=== PATIENT | male | born 1960 | race Caucasian/White ===

== ENCOUNTER 2017-03-03 19:21 | Emergency (ER) | payer SELFPAY | END 2017-03-03 20:36 | disposition home or self-care (01) | LOC: D.ER 19:21 | DX: H60.02 Abscess of left external ear (principal); R51 Headache ==

== ENCOUNTER 2017-03-05 10:59 | Emergency (ER) | payer SELFPAY | END 2017-03-05 11:43 | disposition home or self-care (01) | LOC: D.ER 10:59 | DX: L02.91 Cutaneous abscess, unspecified (principal) ==

== ENCOUNTER 2017-08-21 19:27 | Observation (INO) | payer SELFPAY ==
[~2017-08-21] VITALS: Ht 200.7 cm; Wt 141.4 kg
--- NOTE | ~2017-08-21 | EC ---
PATIENT:STERLING ORTIZ DATE OF SERVICE: 08/21/17 SEX: M MEDICAL RECORD: [id number] DATE OF : 62 LOCATION:D.M2 D.213 AGE OF PATIENT: 57 ADMISSION DATE: 08/21/17 REFERRING PHYSICIAN: INTERPRETING PHYSICIAN: CONCHA PALMER MD ECHOCARDIOGRAM REPORT ECHO CHARGES 4 ECHO COMPLETE Date: 08/22 CLINICAL DIAGNOSIS: HTN HX CAD/CABG ECHOCARDIOGRAPHIC MEASUREMENTS (adult normal given) AC root (d.<3.7cm) 3.6 cm LV Septum d (<1.2 cm> 1.4 cm Valve Excursion 1.7 cm LV Septum (systole) 1.8 cm Left Atria (s.<4.0cm> 3.5 cm LVPW d(<1.2cm) 1.7 cm RV (d.<2.3cm) 3.6 cm LVPW (sytole) 2.3 cm LV diastole(<5.6CM) 5.0 cm MV E-F(>70mm/sec) cm LV systole 3.5 cm LVOT Diameter 2.4 cm MV exc.(>10mm) 1.5 cm Est.ejection fraction (50-75%) % DOPPLER: LVIT cm/sec A 74.0 cm/sec E 57.0 cm/sec LA cm/sec RVSP 20 mmHg LVOT 123 cm/sec AOP1/2T m/s Asc. Ao 154 cm/sec RVOT cm/sec RA cm/sec PA cm/sec AV Gradient Peak 9.52 mmHg AV Mean 5.05 mmHg AV Area 4.5 cm MV Gradient Peak 3.88 mmHg MV Mean 2.17 mmHg MV Area cm COMMENTS: Drying Machine Back Tender: Kaitlynn ALFREDO Route Jumper: 1 Dr. Palmer TAPE# PACS Pericardial Effusion N DATE OF SERVICE: 08/22/2017 PROCEDURE: Echocardiogram. FINDINGS: 1. Left ventricle chamber size is within normal limits. Left ventricular systolic function is normal. Overall ejection fraction estimated at 55%. 2. Left atrium is within normal limits at 3.5 cm. Right atrium and right ventricle chamber sizes are mildly dilated. 3. Valvular structures have normal structure and motion. ECHOCARDIOGRAM REPORT [id number] STERLING ORTIZ 4. Doppler interrogation only reveals trace tricuspid regurgitation, no other valvular insufficiency or stenosis and pulmonary systolic pressure is estimated at 20 mmHg. 5. No evidence of pericardial effusion or left ventricular thrombus. TRANSINT:[id number] Voice Confirmation ID: [id number] DOCUMENT ID: [id number] CONCHA PALMER MD at 1056 CC: [id number] DICTATION DATE: 08/23/17 0939 DIRECTOR OF CONTRACTS: 08/23/17 1106 DIS IN 08/23/17 [facility] [address] [id number]
[2017-08-21 20:17] LABS: BASOPHILS 0.4 % (0-2); EOSINOPHILS 1.2 % (0-7); HEMATOCRIT 41.4 % (42.0-54.0); HEMOGLOBIN 14.7 g/dL (13.5-17.5); IMMATURE GRANULOCYTES 1.3 % (0-5); LYMPHOCYTES 29.3 % (15-50); MCHC 35.5 g/dL (31.0-37.0); MCV 87.3 fL (80.0-100.0); MEAN PLATELET VOLUME 10.4 fL (7.4-10.4); MONOCYTES 6.2 % (2-11); NEUTROPHILS 61.6 % (40-80); RBC 4.74 10x6/uL (4.20-6.10); RDW 13.2 % (11.5-14.5); WBC 9.5 10x3/uL (4.8-10.8)
[2017-08-21 20:28] LABS: PLATELET COUNT 261 10x3/uL (130-400)
[2017-08-21 20:51] LABS: ALBUMIN 3.6 g/dL (3.4-5.0); ALKALINE PHOSPHATASE 110 U/L (46-116); AMYLASE - SERUM 26 U/L (25-115); BILIRUBIN - TOTAL 0.43 mg/dL (0.2-1.3); CALCIUM 8.5 mg/dL (8.5-10.1); CARBON DIOXIDE 21.5 mmol/L (21.0-32.0); CHLORIDE - SERUM 99 mmol/L (98-107); CHOL - HDL RATIO 9.8 ratio (2.3-4.9); CHOLESTEROL, TOTAL 187 mg/dL (0-200); CKMB 1.4 U/L (0.0-3.6); CREATINE KINASE 145 UL (21-232); CREATININE - SERUM 1.1 mg/dL (0.6-1.3); HDL CHOLESTEROL 19 mg/dL (32-96); LIPASE 164 U/L (73-393); POTASSIUM - SERUM 4.1 mmol/L (3.5-5.1); PROTEIN - SERUM 7.9 g/dL (6.4-8.2); SODIUM 136 mmol/L (136-145); UREA NITROGEN 26 mg/dL (7-18); eGFR NON AFRICAN AMERICAN 73 mL/min (90-120)
[2017-08-21 20:55] LABS: ALT (SGPT) 46 U/L (10-68); CALC OSMOLALITY 292 mosm/kg (275-300); GLUCOSE 384 mg/dL (74-106); TRIGLYCERIDE 1343 mg/dL (30-200); TROPONIN-I < 0.017 ng/mL (0.000-0.060)
[2017-08-22] VITALS: BP 156/84
[2017-08-22 00:39] VITALS: BMI 36.1
[2017-08-22 00:45] LABS: CKMB 1.4 U/L (0.0-3.6); CREATINE KINASE 124 UL (21-232)
[2017-08-22 00:47] LABS: TROPONIN-I < 0.017 ng/mL (0.000-0.060)
[2017-08-22 04:00] VITALS: BP 187/104
[2017-08-22 05:51] LABS: BASOPHILS 0.6 % (0-2); EOSINOPHILS 3.1 % (0-7); HEMATOCRIT 39.1 % (42.0-54.0); HEMOGLOBIN 13.4 g/dL (13.5-17.5); IMMATURE GRANULOCYTES 1.5 % (0-5); LYMPHOCYTES 34.4 % (15-50); MCHC 34.3 g/dL (31.0-37.0); MCV 87.5 fL (80.0-100.0); MEAN PLATELET VOLUME 9.7 fL (7.4-10.4); MONOCYTES 7.8 % (2-11); NEUTROPHILS 52.6 % (40-80); RBC 4.47 10x6/uL (4.20-6.10); RDW 13.2 % (11.5-14.5)
[2017-08-22 05:52] LABS: PLATELET COUNT 199 10x3/uL (130-400); WBC 6.6 10x3/uL (4.8-10.8)
[2017-08-22 06:30] LABS: CALC OSMOLALITY 287 mosm/kg (275-300); CALCIUM 8.3 mg/dL (8.5-10.1); CARBON DIOXIDE 22.2 mmol/L (21.0-32.0); CHLORIDE - SERUM 103 mmol/L (98-107); CKMB 1.4 U/L (0.0-3.6); CREATINE KINASE 126 UL (21-232); CREATININE - SERUM 0.9 mg/dL (0.6-1.3); GLUCOSE 271 mg/dL (74-106); POTASSIUM - SERUM 4.1 mmol/L (3.5-5.1); SODIUM 137 mmol/L (136-145); TROPONIN-I < 0.017 ng/mL (0.000-0.060); UREA NITROGEN 23 mg/dL (7-18); eGFR NON AFRICAN AMERICAN > 90 mL/min (90-120)
[2017-08-22 08:04] VITALS: BP 108/71
[2017-08-22 11:54] LABS: CKMB 1.6 U/L (0.0-3.6); CREATINE KINASE 112 UL (21-232); TROPONIN-I < 0.017 ng/mL (0.000-0.060)
[2017-08-22 12:09] VITALS: Ht 200.7 cm; Wt 141.4 kg
[2017-08-22 15:06] VITALS: BP 132/68
[2017-08-22 20:00] VITALS: BP 134/81
[2017-08-23 04:00] VITALS: BP 119/57
[2017-08-23 06:13] LABS: BASOPHILS 0.4 % (0-2); EOSINOPHILS 2.9 % (0-7); HEMATOCRIT 36.3 % (42.0-54.0); HEMOGLOBIN 12.1 g/dL (13.5-17.5); IMMATURE GRANULOCYTES 1.3 % (0-5); LYMPHOCYTES 23.6 % (15-50); MCH 29.9 pg (26.0-34.0); MCHC 33.3 g/dL (31.0-37.0); MONOCYTES 7.4 % (2-11); NEUTROPHILS 64.4 % (40-80); PLATELET COUNT 188 10x3/uL (130-400); RBC 4.05 10x6/uL (4.20-6.10); RDW 13.5 % (11.5-14.5); WBC 6.9 10x3/uL (4.8-10.8)
[2017-08-23 06:15] LABS: MCV 89.6 fL (80.0-100.0)
[2017-08-23 06:30] LABS: ALBUMIN 3.2 g/dL (3.4-5.0); ALKALINE PHOSPHATASE 100 U/L (46-116); CALCIUM 8.4 mg/dL (8.5-10.1); CARBON DIOXIDE 21.9 mmol/L (21.0-32.0); CHLORIDE - SERUM 102 mmol/L (98-107); CREATININE - SERUM 0.9 mg/dL (0.6-1.3); POTASSIUM - SERUM 4.1 mmol/L (3.5-5.1); SODIUM 135 mmol/L (136-145); UREA NITROGEN 20 mg/dL (7-18); eGFR NON AFRICAN AMERICAN > 90 mL/min (90-120)
[2017-08-23 06:31] LABS: ALT (SGPT) 44 U/L (10-68); CALC OSMOLALITY 284 mosm/kg (275-300); GLUCOSE 319 mg/dL (74-106)
[2017-08-23] MEDS ORDERED: CRESTOR10 MG PO (07:35)
[2017-08-23] MEDS ORDERED: LISINOPRIL10 MG PO (07:35)
[2017-08-23] MEDS ORDERED: NORVASC5 MG PO (07:35)
[2017-08-23] MEDS ORDERED: PROTONIX40 MG PO (07:36)
[2017-08-23] MEDS ORDERED: GLUCOPHAGE500 MG PO (07:36)
[2017-08-23] MEDS ORDERED: CARAFATE1 G PO (07:36)
[2017-08-23] MEDS ORDERED: GLIMEPIRIDE2 MG PO (07:36)
[2017-08-23 08:57] VITALS: BP 147/88
[2017-08-23 12:16] VITALS: BP 139/84
== END 2017-08-23 13:10 | disposition home or self-care (01) ==
LOC: D.ER 19:27 → D.M2 23:02 → OBSVTIME 23:02 → D.M2 08-23 13:10
PROVIDERS: Family Medicine
DX: R07.89 Other chest pain (principal); I25.10 Atherosclerotic heart disease of native coronary artery without angina pectoris; I10 Essential (primary) hypertension; E11.9 Type 2 diabetes mellitus without complications; Z79.84 Long term (current) use of oral hypoglycemic drugs; E78.5 Hyperlipidemia, unspecified; Z72.0 Tobacco use

== ENCOUNTER 2018-09-25 21:57 | Observation (INO) | payer BC ==
[~2018-09-25] VITALS: Ht 200.7 cm; Wt 136.8 kg
[~2018-09-25 21:57] MED LIST: CARAFATE1 G PO; CRESTOR10 MG PO; GLIMEPIRIDE2 MG PO; GLUCOPHAGE500 MG PO; LISINOPRIL10 MG PO; NORVASC5 MG PO; PROTONIX40 MG PO
[2018-09-25 22:32] VITALS: BP 183/106
[2018-09-25 23:08] LABS: BASOPHILS 0.4 % (0-2); EOSINOPHILS 2.2 % (0-7); HEMATOCRIT 38.9 % (42.0-54.0); IMMATURE GRANULOCYTES 1.4 % (0-5); LYMPHOCYTES 37.7 % (15-50); MCH 30.9 pg (26.0-34.0); MCV 85.9 fL (80.0-100.0); MEAN PLATELET VOLUME 10.2 fL (7.4-10.4); NEUTROPHILS 51.3 % (40-80); PLATELET COUNT 196 10x3/uL (130-400); RBC 4.53 10x6/uL (4.20-6.10); RDW 12.8 % (11.5-14.5); WBC 8.1 10x3/uL (4.8-10.8)
[2018-09-25 23:15] LABS: APTT 26.2 SECONDS (22.8-39.4); INR 1.01 (0.85-1.17); PROTIME 12.8 SECONDS (11.6-15.0)
--- NOTE | 2018-09-25 23:45 | NUR ---
PATIENT COMPLAINS OF BURNING EPIGASTRIC UP TO THROAT.
[2018-09-26] VITALS (7 sets, daily range): BP systolic 141–153; BP diastolic 76–100; Ht 200.7 cm; Wt 136.8 kg
[2018-09-26 00:10] LABS: AMYLASE - SERUM 23 U/L (25-115); LIPASE 118 U/L (73-393); MAGNESIUM - SERUM 1.7 mg/dL (1.8-2.4)
--- NOTE | 2018-09-26 00:10 | NUR ---
PATIENT PAIN LEVEL IS 1 AFTER TAKING GI COCKTAIL, NO COMPLAINTS VOICED.
[2018-09-26 00:11] LABS: CHLORIDE - SERUM 101 mmol/L (98-107); CREATININE - SERUM 1.2 mg/dL (0.6-1.3); GLUCOSE 330 mg/dL (74-106); SODIUM 138 mmol/L (136-145); UREA NITROGEN 18 mg/dL (7-18); eGFR NON AFRICAN AMERICAN 66 mL/min (90-120)
[2018-09-26 00:12] LABS: ALBUMIN 3.6 g/dL (3.4-5.0); ALKALINE PHOSPHATASE 110 U/L (46-116); ALT (SGPT) 36 U/L (10-68); BILIRUBIN - TOTAL 0.17 mg/dL (0.2-1.3); PROTEIN - SERUM 6.6 g/dL (6.4-8.2)
[2018-09-26 00:13] LABS: CKMB 3.6 U/L (0.0-3.6); CREATINE KINASE 124 UL (21-232); TROPONIN-I 0.035 ng/mL (0.000-0.060)
[2018-09-26 00:15] LABS: CALCIUM 9.2 mg/dL (8.5-10.1)
[2018-09-26 06:22] LABS: BASOPHILS 0.4 % (0-2); EOSINOPHILS 2.9 % (0-7); HEMATOCRIT 38.9 % (42.0-54.0); HEMOGLOBIN 13.6 g/dL (13.5-17.5); IMMATURE GRANULOCYTES 1.2 % (0-5); LYMPHOCYTES 32.9 % (15-50); MCH 30.1 pg (26.0-34.0); MCV 86.1 fL (80.0-100.0); MEAN PLATELET VOLUME 10.5 fL (7.4-10.4); MONOCYTES 7.6 % (2-11); PLATELET COUNT 178 10x3/uL (130-400); RBC 4.52 10x6/uL (4.20-6.10); RDW 12.8 % (11.5-14.5); WBC 6.9 10x3/uL (4.8-10.8)
[2018-09-26 06:48] LABS: CALC OSMOLALITY 286 mosm/kg (275-300); CALCIUM 8.9 mg/dL (8.5-10.1); CARBON DIOXIDE 25.3 mmol/L (21.0-32.0); CHLORIDE - SERUM 103 mmol/L (98-107); CHOL - HDL RATIO 6.6 ratio (2.3-4.9); CHOLESTEROL, TOTAL 139 mg/dL (0-200); CKMB 1.6 U/L (0.0-3.6); CREATINE KINASE 103 UL (21-232); GLUCOSE 303 mg/dL (74-106); HDL CHOLESTEROL 21 mg/dL (32-96); POTASSIUM - SERUM 3.8 mmol/L (3.5-5.1); SODIUM 137 mmol/L (136-145); TROPONIN-I < 0.017 ng/mL (0.000-0.060); UREA NITROGEN 18 mg/dL (7-18); eGFR NON AFRICAN AMERICAN 82 mL/min (90-120)
[2018-09-26 06:49] LABS: TRIGLYCERIDE 585 mg/dL (30-200)
--- NOTE | 2018-09-26 09:36 | NUR ---
PT SITTING IN CHAIR AT BEDSIDE. NEW ORDERS RECIEVED TO HAVE PT SIGN HOOK LOADER CONSENTS. HOOK LOADER CONSENTS SIGNED WITH WITNESS PRESENT. ALL QUESTIONS ANSWERED. AT BEDSIDE. SHIFT ASSESSMENT PERFORMED. DENIES NEEDS AT THIS TIME. WILL CONT TO FOLLOW POC
--- NOTE | 2018-09-26 09:38 | NUR ---
PT CALLED NURSE INTO ROOM AND ALERTED NURSE THAT HE DOES NOT WANT THE HEART CATH. PT STATES,"I KNOW IT IS NOT MY HEART." NOTIFIED RAIL CAR DRIVER.
--- NOTE | 2018-09-26 11:30 | NUR ---
REBECCA SAINI NOTIFIED NURSE THAT PT IS NOW AGREEABLE TO HEART CATH. CALLED . HAS ALREADY LEFT TO GO TO CLINIC FOR THE DAY BUT STATES HE WILL DISCUSS WITH AND SEE IF HE CAN BE ADDED ON AT THE END OF THE DAY.
--- NOTE | 2018-09-26 12:00 | NUR ---
OIL SPECULATOR CALLED NURSE AND STATES THAT PT WILL BE ADDED ON THE LAST CASE OF THE DAY. NURSE WENT TO PT ROOM TO LET THEM KNOW THAT THEY WILL BE HAVING A HEART CATH TODAY. UPON ENTERING PT ROOM, PT HAD HIS LUNCH TRAY AND WAS EATING IT. ADVISED PT THAT HE CANNOT HAVE A HEART CATH TODAY SINCE HE HAS EATEN HIS LUNCH. PT STATES HE DOES NOT WANT THE HEART CATH ANYWAY. NOTIFIED REBECCA SAINI AND THAT PT DOES NOT WANT THE HEART CATH NOW. CALLED OIL SPECULATOR AND DISCSUSSED WITH THEM WELL.
--- NOTE | 2018-09-26 19:43 | NUR ---
PT LAYING IN BED. DENIES ANY NEEDS. NO S/S OF DISTRESS. BEDLOW AND CALL LIGHT IN REACH. NAME AND DATE PLACED ON BOARD. BEDLOW AND CALL LIGHT IN REACH. WILL CPOC
--- NOTE | 2018-09-26 22:02 | NUR ---
414 FSBS 12 UNITS GIVEN ORDERED. EDUCATION GIVEN ON NIGHT MEDICATIONS. PT VERBALIZED UNDERSTANDING. PT STATES WILL DO HEART CATH IN THE MORNING, VERBALIZED UNDERSTANDING OF NPO AFTER MIDNIGHT. PT STATES BLOOD SUGAR HAS BEEN UNCONTROLLED FOR YEARS. PT SITTING ON SIDE OF BED NOW. NO S/S OF DISTRESS. DENIES ANY NEEDS. WILL CPOC
--- NOTE | 2018-09-27 00:02 | NUR ---
PT ASLEEP. RESP EVEN AND UNLABORED. PT SNORING LOUDLY. NO S/S OF DISTRESS. REMOVED DRINKS FROM BEDSIDE. PT HAS CALL LIGHT IN REACH. WILL CPOC
[2018-09-27 05:20] VITALS: BP 169/89
[2018-09-27 05:39] LABS: BASOPHILS 0.5 % (0-2); EOSINOPHILS 2.3 % (0-7); HEMOGLOBIN 14.3 g/dL (13.5-17.5); IMMATURE GRANULOCYTES 1.1 % (0-5); LYMPHOCYTES 27.5 % (15-50); MCH 30.6 pg (26.0-34.0); MCHC 35.8 g/dL (31.0-37.0); MCV 85.7 fL (80.0-100.0); MEAN PLATELET VOLUME 10.3 fL (7.4-10.4); MONOCYTES 7.8 % (2-11); NEUTROPHILS 60.8 % (40-80); PLATELET COUNT 191 10x3/uL (130-400); RBC 4.67 10x6/uL (4.20-6.10); RDW 12.7 % (11.5-14.5); WBC 7.3 10x3/uL (4.8-10.8)
[2018-09-27 06:12] LABS: ALBUMIN 3.3 g/dL (3.4-5.0); ALKALINE PHOSPHATASE 115 U/L (46-116); ALT (SGPT) 33 U/L (10-68); CALC OSMOLALITY 289 mosm/kg (275-300); CALCIUM 8.6 mg/dL (8.5-10.1); CARBON DIOXIDE 23.8 mmol/L (21.0-32.0); CHLORIDE - SERUM 101 mmol/L (98-107); CREATININE - SERUM 0.9 mg/dL (0.6-1.3); GLUCOSE 308 mg/dL (74-106); MAGNESIUM - SERUM 1.9 mg/dL (1.8-2.4); POTASSIUM - SERUM 3.9 mmol/L (3.5-5.1); PROTEIN - SERUM 7.1 g/dL (6.4-8.2); SODIUM 138 mmol/L (136-145); UREA NITROGEN 18 mg/dL (7-18); eGFR NON AFRICAN AMERICAN > 90 mL/min (90-120)
--- NOTE | 2018-09-27 07:29 | NUR ---
PT REFUSES ANY INSULIN THIS MORNING FOR FSBS OF 308 PT HAS NO S/S OF DISTRESS. WILL CPOC
[2018-09-27 08:00] VITALS: BP 133/81
--- NOTE | 2018-09-28 08:42 | MORECARE ---
CASE MANAGEMENT DISCHARGE SUMMARY PATIENT: STERLING ORTIZ UNIT: [id number] ADM DATE: 09/26/18 AGE: 58 : 62 SEX: M ROOM/BED: D.2128 AUTHOR: NEGRITO VERDIN PHYSICIAN: REFERRING PHYSICIAN: ROHAN FRANCISCO MD DATE OF SERVICE: 09/28/18 Discharge Plan Patient Name: STERLING ORTIZ [facility] 1960 Planned Disposition: Left Against Medical Advice Anticipated Discharge Date: 09/27/18 Discharge Date: 09/27/2018 Expected LOS: 1 Initial Reviewer: [email or web address] Initial Review Date: 09/28/2018 Generated: 09/28/18 9:42 am Patient Name: STERLING ORTIZ Page 37907 at 0842 All edits/amendments must be made on the electronic document DICTATION DATE: 09/28/18840 SENIOR MEDICAL TECHNOLOGIST: CHAR 09/28/18840 RPT#: [id number] DC DATE:09/27/18 STATUS: DIS IN [facility] [address] [place] [address] END OF REPORT
== END 2018-09-27 11:22 | disposition left against medical advice (07) ==
LOC: D.ER 21:57 → D.M2 09-26 01:14 → OBSVTIME 09-26 01:14 → D.M2 09-27 11:22
PROVIDERS: Family Medicine; ADMIT Emergency Medicine; ATTEND Emergency Medicine
DX: I25.110 Atherosclerotic heart disease of native coronary artery with unstable angina pectoris (principal); R61 Generalized hyperhidrosis; I10 Essential (primary) hypertension; E11.65 Type 2 diabetes mellitus with hyperglycemia; K21.9 Gastro-esophageal reflux disease without esophagitis; Z87.891 Personal history of nicotine dependence

== ENCOUNTER 2018-10-04 18:06 | Emergency (ER) | payer BC ==
[~2018-10-04] VITALS: Ht 200.7 cm; Wt 140.9 kg
[2018-10-04 18:20] VITALS: Ht 200.7 cm; Wt 140.9 kg
[2018-10-04] MEDS ORDERED: TORADOL10 MG PO (20:40)
[2018-10-04] MEDS ORDERED: CLEOCIN HCL300 MG PO (20:40)
[2018-10-04 21:19] VITALS: BP 181/89
== END 2018-10-04 21:20 | disposition home or self-care (01) ==
LOC: D.ER 18:06
DX: K61.0 Anal abscess (principal)

== ENCOUNTER 2019-09-08 10:44 | Inpatient (IN) | payer BC ==
[~2019-09-08] VITALS: Ht 200.7 cm; Wt 122.9 kg
--- NOTE | ~2019-09-08 | HEMODYNAMI ---
PATIENT:MARY ORTIZ MEDICAL RECORD: [id number] : 62 LOCATION:[facility].2234 ADMISSION DATE: 09/08/19 Generatedon:09/12/201914:29 Patient name: MARY ORTIZ Patient #: [id number] SSN: : 1960 Date of study: 09/12/2019 Page: Of Hemodynamic Procedure Report Patient Data Patient Demographics Procedure consent was obtained First Name: MARY Gender: Male Last Name: ANGEL : 1960 Patient #: [id number] Age: 59 year(s) Race: Unknown Additional ID: [id number] Contact details Address: [address] [place] [address] State: [place] City: [place] Zip code: [address] Past Medical History Allergies: No known allergies Admission Admission Data Admission Date: 09/08/2019 Admission Time: 13:57 Room #: [facility] Procedure Procedure Types Cath Procedure Peripheral Cath Diagnostic Procedure Miscellaneous Procedure Description Procedure Date Procedure Date: 09/12/2019 Procedure Start Time: 13:41 Procedure Staff Name Function Fei Jacobo MD Performing Physician Osiris Hernandez RT Monitor Danielito Black RT Scrub Ramila Deluca RN Nurse Procedure Data Cath Procedure Fluoroscopy Diagnostic fluoroscopy Total fluoroscopy Time: 7.3 time: 7.3 min min Diagnostic fluoroscopy Total fluoroscopy dose: 845 dose: 845 mGy mGy Contrast Material Contrast Material Type Amount (ml) Isovue 300 95 Entry Location Entry Primary Successful Side Size Upsize Upsize Entry Closure Succes sful Closure Location (Fr) 1 (Fr) 2 (Fr) Remarks Device Remarks Femoral Mynx artery Musical Instrument Maker Or Repairer 6Fr/7Fr Diagnostic catheters Device Type Used For End Catheter Placement Merit ULTRA BOLUS FLUSH 5Fr 90CM catheter ([id number]) Merit Impress Bean 5FR. 100CM catheter ([id number]) Procedure Medications Medication Administration Route Dosage Heparin Flush Bag added to field 3 bags (1000units/500ml NS) Lidocaine 1% added to field 20 Versed I.V. 1 mg Fentanyl I.V. 50 mcg Heparin Bolus I.V. 6000 units Hemodynamics Rest Heart Rate: 81 (bpm) Snapshots Pre Cath Intra NCS Post Cath Vital Signs Time Heart Resp SPO2 etCO2 NIBP (mmHg) Rhythm Pain Sedation Rate (ipm) (%) (mmHg) Status Level (bpm) 13:03:10 82 14 98 33.1 139/93(114) NSR 0 (11) 10(A) , No pain 13:07:22 80 13 98 33.8 151/89(114) NSR 0 (11) 10(A) , No pain 13:11:31 81 9 98 30.1 137/86(114) NSR 0 (11) 10(A) , No pain 13:15:43 82 13 98 33.8 140/85(108) NSR 0 (11) 10(A) , No pain 13:19:57 81 15 99 32.3 147/89(114) NSR 0 (11) 10(A) , No pain 13:24:11 84 20 97 31.6 149/92(120) NSR 0 (11) 10(A) , No pain 13:28:25 87 10 98 33.8 146/92(123) NSR 0 (11) 10(A) , No pain 13:32:37 90 16 99 19.5 150/90(127) NSR 0 (11) 10(A) , No pain 13:36:51 89 17 99 29.3 168/95(135) NSR 0 (11) 10(A) , No pain 13:41:07 87 6 97 38.3 152/85(122) NSR 0 (11) 10(A) , No pain 13:45:21 88 13 97 21 140/91(115) NSR 0 (11) 8(A) , No pain 13:49:37 87 10 95 35.3 126/75(99) NSR 0 (11) 8(A) , No pain 13:53:49 81 13 96 36.8 125/74(92) NSR 0 (11) 8(A) , No pain 13:58:01 80 15 96 35.3 127/76(102) NSR 0 (11) 8(A) , No pain 14:02:09 96 18 96 32.3 130/79(97) NSR 0 (11) 8(A) , No pain 14:06:19 85 16 96 33 127/74(98) NSR 0 (11) 8(A) , No pain 14:10:33 84 16 96 30 137/70(87) NSR 0 (11) 8(A) , No pain 14:14:47 81 15 97 33.8 129/75(100) NSR 0 (11) 8(A) , No pain 14:18:59 78 17 97 33 137/76(95) NSR 0 (11) 8(A) , No pain 14:23:11 82 22 97 28.5 139/87(113) NSR 0 (11) 8(A) , No pain 14:27:25 81 6 99 35.3 151/84(114) NSR 0 (11) 8(A) , No pain Medications Time Medication Route Dose Verified Delivered Reason Notes Effe ctiveness by by 13:29:54 Heparin Flush added 3 Fei Enamorado used for Bag to bags Donnell Jacobo procedure (1000units/500ml field MD ATNONIO NS) 13:30:10 Lidocaine 1% added 20ml Fei Enamorado for local to vial Donnell Jacobo anesthetic field MD ANTONIO 13:44:16 Versed I.V. 1 mg Fei Mcgrath for Donnell Deluca RN sedation 13:44:27 Fentanyl I.V. 50 Fei Ramila for mcg Donnell Deluca RN sedation 13:56:46 Heparin Bolus I.V. 6000 Fei Mcgrath Per units Donnell Deluca RN physician Procedure Log Time Note 13:00:42 Danielito Black RT (R) (CV) sent for patient. Start room use. 13:01:18 Time tracking: Regular hours (M-F 7:00 - 5:00) 13:01:40 Plan of Care:Hemodynamics will remain stable., Cardiac rhythm will remain stable., Comfort level will be maintained., Respiratory function will remain adequate., Patient/ family verbilizes understanding of procedure., Procedure tolerated without complication., Recovers from procedure without complications.. 13:01:47 Patient received from Med II to IR Alert and oriented. Tansferred to table in Supine position. 13:01:52 Signed procedure consent form obtained from patient. 13:01:58 H&P Date Dictated: 09/12/2019 Within 30 days and on chart.. 13:02:02 ECG and BP/O2 sat monitors applied to patient. 13:02:07 Vital chart was started 13:02:09 Baseline sample Acquired. 13:02:10 Full Disclosure recording started 13:02:12 - 13:02:16 Pre-procedure instructions explained to patient. 13:02:17 Pre-op teaching completed and patient verbalized understanding. 13:02:24 Family unavailable. 13:02:26 Patient NPO since Midnight. 13:02:36 Patient allergic to No known allergies 13:02:40 Is the patient allergic to Iodine/contrast media? No. 13:02:47 Is patient on blood thinner?No 13:02:50 Patient diabetic? Yes. 13:02:57 - 13:03:01 ----Pre-sedation anethsthesia assessment.---- 13:03:07 Previous problem with sedation/anesthesia? No ? 13:03:10 Snore? Yes 13:03:13 Sleep apnea? No 13:03:16 Deviated septum? No 13:03:21 Opens mouth fully? Yes 13:03:24 Sticks out tongue? Yes 13:03:26 Airway obstruction? No ? 13:03:32 Dentures? No ? 13:03:33 - 13:03:38 Pre procedure: right dorsailis pedis pulse Doppler 13:03:43 Pre procedure: left dorsailis pedis pulse Doppler 13:03:47 Pre procedure: right posterior tibial pulse Doppler 13:03:52 Pre procedure: left posterior tibial pulse Doppler 13:04:00 Right groin area was prepped with chlora-prep and draped in sterile fashion 13:04:02 - 13:04:14 Fire Safety Assessment: A--An alcohol-based skin anteseptic being used preoperatively., C--Open oxygen or nitrous oxide is being used. 13:04:25 1) 90+ Normal kidney functon but urine findings or structural abnormalities or genetic trait point to kidney disease. 13:04:52 Maximum allowable contrast dose (3.7 X eGFR X 0.75)250 ml. 13:04:55 - 13:08:22 Use device set IR Diagnostic 13:08:24 Tegaderm 4 x 4 (1626W) opened to sterile field. 13:08:25 Sterile Angiographic Pack opened to sterile field. 13:08:25 Bag Decanter () opened to sterile field. 13:08:26 ACIST Manifold (87934) opened to sterile field. 13:08:27 ACIST Hand Control (54129) opened to sterile field. 13:08:28 ACIST Syringe (57680) opened to sterile field. 13:09:16 BENTSON 145cm wire ([id number]) opened to sterile field. 13:09:17 SHEATH 5FR Harrison (FLJ050) opened to sterile field. 13:09:17 TUBING Contrast Injection High Pressure (FQO653L) opened to sterile field. 13:09:18 SALVADOR 260 wire (O47225) opened to sterile field. 13:09:20 A Regalister ULTRA BOLUS FLUSH 5Fr 90CM catheter ([id number]) was advanced over the wire and used for . 13:09:37 Micropuncture VSI 4FR kit opened to sterile field. 13:09:42 - 13:29:54 Heparin Flush Bag (1000units/500ml NS) 3 bags added to field was administered by Fei Jacobo MD; used for procedure; Verbal order read back and verified. 13:30:10 Lidocaine 1% 20ml vial added to field was administered by Fei chandra MD; for local anesthetic; Verbal order read back and verified. 13:40:31 Physician arrived 13:40:32 --------ALL STOP TIME OUT------ 13:40:33 Final Timeout: patient, procedure, and site verified with staff and physician. All members of the team are in agreement. 13:41:03 Procedure started. 13:41:08 Local anesthetic to right femoral artery with Lidocaine 1% by Fei Jacobo MD.INITIAL ACCESS ONLY 13:44:16 Versed 1 mg I.V. was administered by Ramila Deluca RN; for sedation; Verbal order read back and verified. 13:44:27 Fentanyl 50 mcg I.V. was administered by Ramila Deulca RN; for sedation ; Verbal order read back and verified. 13:49:23 INFLATOR BasixTOUCH (YC4233) opened to sterile field. 13:49:24 COOK SHEATH 6FR RAABE 70CM (R25259) opened to sterile field. 13:54:12 A Merit Impress Bean 5FR. 100CM catheter ([id number]) was advanced over the wire and used for . 13:55:04 ROADRUNN .035 145 glide wire (X64551) opened to sterile field. 13:56:46 Heparin Bolus 6000 units I.V. was administered by Ramila Yosi RN; Per physician; Verbal order read back and verified. 14:04:04 AMPLATZ Super stiff Straight 260cm wire ([id number]) opened to sterile field. 14:16:53 SHEATH 6FR Harrison (OZZ823) opened to sterile field. 14:18:31 Place stent Inflation Number: 1 A Visipro 6 x 27 x 135 Stent ([id number]) was prepped and advanced across the Undefined1 . The stent was deployed . 14:21:42 MYNX FLEET ADMINISTRATOR 6FR/7FR (HB6736) opened to sterile field. 14:22:03 A sheath was inserted into the Femoral artery 14:22:03 Sheath removed intact; hemostasis achieved with Mynx Musical Instrument Maker Or Repairer 6Fr/7Fr to th e Femoral artery. 14:22:17 Procedure ended.(Physican Out) 14:22:47 Fluoroscopy time 07.30 minutes. 14:22:52 Fluoroscopy dose: 845 mGy 14:22:52 Flurop Dose total: 845 14:22:58 Contrast amount:Isovue 300 95ml. 14:28:09 Procedure and supply charges have been captured, reviewed, submitted an d are correct. 14:28:19 Report given to Med/Surg. 14:29:55 Vital chart was stopped Intervention Summary Intervention Notes Time ActionType Lesion and Equipment Used Action# Pressure Duration Attributes 14:18:31 Place stent Undefined1 Visipro 6 x 27 x 1 0 00:00 135 Stent ([id number]) Device Usage Item Name Manufacture Quantity Catalog Number [facility] Minimal Lot# / Charge Number Stock Stock Serial# Code Tegaderm 4 x 4 3M 1 [id number] 794675 96845 8 5 (1626W) Sterile Cardinal 1 [id number] 930322 55019 8 5 Angiographic Pack Health Bag Decanter Microtek 1 2001S 139780 80110 54053 1 5 () Medical Inc. ACIST Manifold Acist 1 25236 868551 052364 15275 3 5 (35201) Medical Systems Inc ACIST Hand Acist 1 72603 350962 609269 60107 7 5 Control (81833) Medical Systems Inc ACIST Syringe Acist 1 41621 425814 422082 94356 6 20 (67563) Medical Systems Inc BENTSON 145cm Cook Medical 1 G16877 484464 55204 5 5 wire (L16675) SHEATH 5FR Terumo 1 ZDW518 068119 920100 72575 3 5 Harrison (LOJ360) TUBING Contrast Merit 1 [id number] 113607 431778 48253 8 5 Injection High Medical Pressure (IBK928E) SALVADOR 260 wire Cook Medical 1 L92885 428703 60809 84396 6 5 [id number] ([id number]) Merit ULTRA BOLUS Merit 1 [id number] 051414 03934 1 5 FLUSH 5Fr 90CM Medical catheter ([id number]) Micropuncture VSI VSI VASCULAR 1 7266V 240980 24694 2 5 4FR kit SOLUTIONS INFLATOR Merit 1 GV3694 086623 884733 82085 8 5 BasixTOUCH Medical (BP2552) COOK SHEATH 6FR Cook Medical 1 O43553 035345 04264 23809 6 1 [id number] RAABE 70CM (B31461) Merit Impress Merit 1 [id number] 211938 04364 5 5 Bean 5FR. Medical 100CM catheter (698204QML) ROADRUNNER .035 Cook Medical 1 B20249 230826 947695 65730 4 5 [id number] 145 glide wire (W08927) AMPLATZ Super [place] 1 [id number] 070925 04280 12476 9 5 stiff Straight Scientific 260cm wire ([id number]) SHEATH 6FR Terumo 1 DBB595 094245 999526 99317 9 40 Harrison (VGQ933) Visipro 6 x 27 x Medtronic 1 [id number] 601118 820980 90286 4 5 135 Stent (YIR35-50-77-352) MYNX FLEET ADMINISTRATOR 6FR/7FR Access 1 ET3516 148772 79374 9 5 [id number] ([id number]) Closure Signature Audit [place] Stage Time Signature Unsigned Intra-Procedure 09/12/2019 Osiris Hernandez 2:29:49 PM RT(R) [facility] [address] [place] [address]
[~2019-09-08 10:44] MED LIST changes: +CLEOCIN HCL300 MG PO; +TORADOL10 MG PO
[2019-09-08 11:20] LABS: BASOPHILS 0.5 % (0-2); EOSINOPHILS 2.4 % (0-7); HEMOGLOBIN 14.9 g/dL (13.5-17.5); IMMATURE GRANULOCYTES 0.5 % (0-5); LYMPHOCYTES 32.6 % (15-50); MCH 30.6 pg (26.0-34.0); MCHC 34.7 g/dL (31.0-37.0); MCV 88.3 fL (80.0-100.0); PLATELET COUNT 222 10x3/uL (130-400); RBC 4.87 10x6/uL (4.20-6.10); RDW 12.8 % (11.5-14.5)
--- NOTE | 2019-09-08 11:32 | NUR ---
PT TO CT VIA STRETCHER.
[2019-09-08 11:49] VITALS: BP 146/84
[2019-09-08 11:53] LABS: ALBUMIN 3.5 g/dL (3.4-5.0); ALKALINE PHOSPHATASE 128 U/L (30-120); ALT (SGPT) 32 U/L (10-68); BILIRUBIN - TOTAL 0.67 mg/dL (0.2-1.3); CALCIUM 8.8 mg/dL (8.5-10.1); CARBON DIOXIDE 22.7 mmol/L (21.0-32.0); CHLORIDE - SERUM 102 mmol/L (98-107); CKMB 1.8 U/L (0.0-3.6); CREATINE KINASE 136 UL (21-232); CREATININE - SERUM 1.2 mg/dL (0.6-1.3); MAGNESIUM - SERUM 1.7 mg/dL (1.8-2.4); POTASSIUM - SERUM 4.1 mmol/L (3.5-5.1); PROTEIN - SERUM 7.3 g/dL (6.4-8.2); SODIUM 135 mmol/L (136-145); THYROID STIMULATING HORMONE 2.43 uIU/mL (0.36-3.74); UREA NITROGEN 22 mg/dL (7-18); eGFR NON AFRICAN AMERICAN 66 mL/min (90-120)
[2019-09-08 11:56] LABS: CALC OSMOLALITY 289 mosm/kg (275-300); GLUCOSE 400 mg/dL (74-106); TROPONIN-I < 0.017 ng/mL (0.000-0.060)
[2019-09-08 12:05] LABS: APTT 26.6 SECONDS (22.8-39.4)
[2019-09-08 12:06] LABS: INR 0.99 (0.85-1.17); PROTIME 13.1 SECONDS (11.6-15.0)
--- NOTE | 2019-09-08 12:30 | NUR ---
urine sample sent to lab.
[2019-09-08 12:37] LABS: BILIRUBIN NEGATIVE (NEGATIVE); GLUCOSE 1000 mg/dL (NEGATIVE); KETONE SMALL mg/dL (NEGATIVE); NITRITE NEGATIVE (NEGATIVE); SPECIFIC GRAVITY 1.015 (1.005-1.020); UROBILINOGEN NORMAL (NORMAL)
[2019-09-08 12:43] LABS: UDS - AMPHET NEGATIVE QUAL (NEGATIVE); UDS - BARB NEGATIVE QUAL (NEGATIVE); UDS - BENZO NEGATIVE QUAL (NEGATIVE); UDS - COCAINE NEGATIVE QUAL (NEGATIVE); UDS - OPIATE NEGATIVE QUAL (NEGATIVE); UDS - PCP NEGATIVE QUAL (NEGATIVE); UDS - THC NEGATIVE QUAL (NEGATIVE)
[2019-09-08 13:00] VITALS: BP 139/86
--- NOTE | 2019-09-08 13:21 | NUR ---
PT REFUSED ABG WAS ABLE TO HAVE HIM AGREE. WASNT ABLE TO OBTAIN IN FIRST ATTEMPT. PT REFUSED
[2019-09-08 15:24] VITALS: BP 151/81; BMI 30.6
[2019-09-08 16:00] VITALS: BP 158/89
[2019-09-08] MEDS ORDERED: OMEPRAZOLE40 MG PO (16:12)
[2019-09-08] MEDS ORDERED: GLUCOPHAGE500 MG PO (16:12)
[2019-09-08] MEDS ORDERED: LISINOPRIL10 MG PO (16:13)
[2019-09-08 16:18] LABS: CHOL - HDL RATIO 8.6 ratio (2.3-4.9); CHOLESTEROL, TOTAL 171 mg/dL (0-200); CKMB 1.6 U/L (0.0-3.6); CREATINE KINASE 127 UL (21-232); HDL CHOLESTEROL 20 mg/dL (32-96)
[2019-09-08 16:19] LABS: TRIGLYCERIDE 722 mg/dL (30-200); TROPONIN-I < 0.017 ng/mL (0.000-0.060)
--- NOTE | 2019-09-08 19:00 | NUR ---
BEDSIDE REPORT RECEIVED AND CARE OF PT ASSUMED. PT LYING IN HIGH SANCHEZ'S POSITION WITH EYES CLOSED. IV TO LEFT FA SALINE LOCKED. WILL MONITOR FOR NEEDS.
[2019-09-08 20:00] VITALS: BP 150/90
--- NOTE | 2019-09-08 20:19 | NUR ---
HS MEDICATIONS GIVEN. FSBS 310 THIS CHECK REQUIRING COVERAGE WITH 8 UNITS OF INSULIN PER SLIDING SCALE.
[2019-09-09 00:33] VITALS: BP 145/82
[2019-09-09 04:30] VITALS: BP 134/85
[2019-09-09 05:23] LABS: BASOPHILS 0.3 % (0-2); EOSINOPHILS 3.4 % (0-7); HEMATOCRIT 42.2 % (42.0-54.0); IMMATURE GRANULOCYTES 0.7 % (0-5); LYMPHOCYTES 34.2 % (15-50); MCH 29.5 pg (26.0-34.0); MCHC 33.2 g/dL (31.0-37.0); MEAN PLATELET VOLUME 9.8 fL (7.4-10.4); MONOCYTES 7.6 % (2-11); NEUTROPHILS 53.8 % (40-80); PLATELET COUNT 202 10x3/uL (130-400); RBC 4.74 10x6/uL (4.20-6.10); RDW 12.9 % (11.5-14.5)
[2019-09-09 05:36] LABS: CALCIUM 8.6 mg/dL (8.5-10.1); CARBON DIOXIDE 23.7 mmol/L (21.0-32.0); CHLORIDE - SERUM 102 mmol/L (98-107); CHOL - HDL RATIO 8.4 ratio (2.3-4.9); CHOLESTEROL, TOTAL 167 mg/dL (0-200); CREATININE - SERUM 0.9 mg/dL (0.6-1.3); HDL CHOLESTEROL 20 mg/dL (32-96); POTASSIUM - SERUM 4.1 mmol/L (3.5-5.1); SODIUM 134 mmol/L (136-145); UREA NITROGEN 18 mg/dL (7-18); eGFR NON AFRICAN AMERICAN > 90 mL/min (90-120)
[2019-09-09 05:40] LABS: CALC OSMOLALITY 279 mosm/kg (275-300); GLUCOSE 284 mg/dL (74-106); TRIGLYCERIDE 614 mg/dL (30-200)
[2019-09-09 07:53] VITALS: BP 137/80
[2019-09-09 12:35] VITALS: BP 142/85
[2019-09-09 12:55] VITALS: BMI 30.5
--- NOTE | 2019-09-09 14:42 | NUR ---
SHOE CEMENTER SPOKE WITH PATIENT ABOUT SCDS AT THIS TIME. PATIENT REFUSED. CALL LIGHT WITHIN REACH.
[2019-09-09 17:13] VITALS: BP 107/58
[2019-09-09 17:16] LABS: GLUCOSE - CSF 173 MG/DL (40-75); PROTEIN - CSF 44 MG/DL (12-60)
[2019-09-09 17:29] LABS: APPEARANCE - CSF CLEAR
[2019-09-09 17:32] LABS: RBC - CSF 247 cmm (0-0)
[2019-09-09] MEDS ORDERED: ZOFRAN4 MG PO (18:35)
[2019-09-09] MEDS ORDERED: PROTONIX40 MG PO (18:36)
--- NOTE | 2019-09-09 18:45 | NUR ---
PATIENT IN BED WITH IV INTACT. NO COMPLAINTS OR SIGNS OF DISTRESS. CALL LIGHT WITHIN REACH.
--- NOTE | 2019-09-09 19:00 | NUR ---
BEDSIDE REPORT RECEIVED AND CARE OF PT ASSUMED. PT LYING IN SUPINE POSITION WITH EYES CLOSED. IV TO LEFT FA SALINE LOCKED. TELEMETRY IN PLACE AND READING 73 SR AT THIS ASSESSMENT. PT WITH RIGHT VISUAL FIELD DEFICITS; HOMONYMOUS HEMIANOPSIA PER DR SMITH. WILL MONITOR FOR NEEDS.
[2019-09-09 20:05] VITALS: BP 172/80
--- NOTE | 2019-09-09 20:30 | NUR ---
HS MEDICATIONS GIVEN. WILL CONTINUE TO MONITOR FOR NEEDS.
--- NOTE | 2019-09-09 20:30 | NUR ---
STARTED ELIQUIS 5 MG PO BID THIS EVENING PER NEW ORDER. TEACHING PERFORMED ON MEDICATION.
[2019-09-10] VITALS: BP 167/74
[2019-09-10 04:01] VITALS: BP 115/51
[2019-09-10 05:28] LABS: BASOPHILS 0.2 % (0-2); EOSINOPHILS 2.2 % (0-7); HEMATOCRIT 41.9 % (42.0-54.0); HEMOGLOBIN 14.3 g/dL (13.5-17.5); IMMATURE GRANULOCYTES 0.8 % (0-5); LYMPHOCYTES 31.9 % (15-50); MCH 30.1 pg (26.0-34.0); MCHC 34.1 g/dL (31.0-37.0); MCV 88.2 fL (80.0-100.0); MONOCYTES 7.1 % (2-11); NEUTROPHILS 57.8 % (40-80); PLATELET COUNT 230 10x3/uL (130-400); RBC 4.75 10x6/uL (4.20-6.10); RDW 12.8 % (11.5-14.5)
[2019-09-10 05:56] LABS: CALC OSMOLALITY 282 mosm/kg (275-300); CALCIUM 8.6 mg/dL (8.5-10.1); CHLORIDE - SERUM 101 mmol/L (98-107); CREATININE - SERUM 0.8 mg/dL (0.6-1.3); GLUCOSE 268 mg/dL (74-106); MAGNESIUM - SERUM 1.8 mg/dL (1.8-2.4); SODIUM 136 mmol/L (136-145); UREA NITROGEN 17 mg/dL (7-18); eGFR NON AFRICAN AMERICAN > 90 mL/min (90-120)
--- NOTE | 2019-09-10 08:30 | NUR ---
PATIENT IN BED WITH IV INTACT. NO COMPLAINTS OR SIGNS OF DISTRESS. CALL LIGHT WITHIN REACH.
--- NOTE | 2019-09-10 08:35 | EC ---
PATIENT:MARY ORTIZ DATE OF SERVICE: 09/08/19 SEX: M MEDICAL RECORD: [id number] DATE OF : 62 LOCATION:D.[facility] AGE OF PATIENT: 59 ADMISSION DATE: 09/08/19 REFERRING PHYSICIAN: INTERPRETING PHYSICIAN: EFRA LAZCANO MD ECHOCARDIOGRAM REPORT ECHO CHARGES 4 ECHO COMPLETE Date: 09/09/19 CLINICAL DIAGNOSIS: CHF/SYNCOPE/ CVA HX OF CAD ECHOCARDIOGRAPHIC MEASUREMENTS (adult normal given) AC root (d.<3.7cm) 3.1 cm LV Septum d (<1.2 cm> 1.5 cm Valve Excursion 1.7 cm LV Septum (systole) 1.7 cm Left Atria (s.<4.0cm> 3.9 cm LVPW d(<1.2cm) 1.8 cm RV (d.<2.3cm) 4.4 cm LVPW (sytole) 2.0 cm LV diastole(<5.6CM) 5.4 cm MV E-F(>70mm/sec) cm LV systole 3.9 cm LVOT Diameter cm MV exc.(>10mm) 1.7 cm Est.ejection fraction (50-75%) % DOPPLER: LVIT cm/sec A 71.0 cm/sec E 62.0 cm/sec LA cm/sec RVSP 18 mmHg LVOT 109 cm/sec AOP1/2T m/s Asc. Ao 136 cm/sec RVOT cm/sec RA cm/sec PA cm/sec AV Gradient Peak 7.42 mmHg AV Mean 4.13 mmHg AV Area 3.4 cm MV Gradient Peak 2.59 mmHg MV Mean 1.14 mmHg MV Area cm COMMENTS: Precast Molder: 2 NÉSTOR ALFREDO Form Press Operator: 3 Dr. Dimas TAPE# PACS Pericardial Effusion N DATE OF SERVICE: Adequate 2D, color flow imaging, spectral Doppler, and M-mode. LVH is present. LV internal dimension is normal. Wall motion is normal. EF is greater than or equal to 55%. Aortic valve is tricuspid. No evidence of stenosis by Doppler interrogation. Left atrium is normal. Mitral valve shows no prolapse. Trace MR. Right-sided chambers are grossly normal. Trace TR. TRANSINT:[id number] Voice Confirmation ID: [id number] DOCUMENT ID: [id number] ECHOCARDIOGRAM REPORT [id number] ANGEL,MARY EFRA LAZCANO MD at 0835 CC: [id number] DICTATION DATE: 09/09/19 1220 GRAIN PROCESSOR: 09/09/19 2303 ADM IN [place] [id number] [place] [id number]
[2019-09-10 08:48] VITALS: BP 133/79
--- NOTE | 2019-09-10 11:30 | NUR ---
PATIENT UP TO SHOWER AT THIS TIME.
[2019-09-10 12:59] VITALS: BP 122/68
--- NOTE | 2019-09-10 14:30 | NUR ---
PATIENT IN BED WITH IV INTACT. NO COMPLAINTS OR SIGNS OF DISTRESS. CALL LIGHTW ITHIN REACH.
--- NOTE | 2019-09-10 15:11 | NUR ---
OT NOTE: PT CONTINUES TO HAVE SEVERE VISUAL DEFECITS. EDUCATION IN COMPENSATORY TECH INCLUDING TURNING HEAD INSTEAD OF ONLY USING EYES. NOTED YESTERDAY THAT PT HAD NO PERIPHERAL VISION, HOWEVER, TODAY PT DESCRIBES IT MORE LIKE TUNNEL VISION. REPORTS SEVERE HEADACHE DUE TO ATTEMPTING TO USE PHONE AND STRAINING TO SEE THE SCREEN. TRANSFERS WITH MIN/MOD ASSIST. DIFFICULTY LEVEL IS INCREASED DUE TO VISUAL FIELD CUTS. RACHNA LIVINGSTON, OTR/L [phone]
--- NOTE | 2019-09-10 15:21 | NUR ---
OT NOTE: PT COMPLETED BED MOB TASKS WITH MIN A. PT COMPLETED ADL MOB WITH RW REQUIRED MIN A. PT STATED HIS VISION IS DISTORTED BY DOUBLE VISION AND DECREASED PERIPHERAL VISION. PT DONNED/DOFFED SHOES AT EOB WITH SBA. [phone] THANK YOU,TIMOTHY IBANEZ
--- NOTE | 2019-09-10 15:45 | NUR ---
DR. SMART IN SPEAKING WITH PATIENT ABOUT STENT PROCEDURE ON MONDAY OR MONDAY.
[2019-09-10 16:38] VITALS: BP 153/79
--- NOTE | 2019-09-10 17:30 | NUR ---
PATIENT SITTING UP ON THE SIDE OF THE BED EATING WITH NO PROBLEMS AT THIS TIME. WAITING FOR INSULIN FROM PHARMACY. BS 262.
[2019-09-10 20:00] VITALS: BP 103/63
[2019-09-11] VITALS: BP 105/53
[2019-09-11 04:00] VITALS: BP 121/65
[2019-09-11 05:39] LABS: BASOPHILS 0.3 % (0-2); EOSINOPHILS 2.4 % (0-7); HEMATOCRIT 42.1 % (42.0-54.0); HEMOGLOBIN 14.5 g/dL (13.5-17.5); LYMPHOCYTES 30.4 % (15-50); MCH 30.2 pg (26.0-34.0); MCHC 34.4 g/dL (31.0-37.0); MCV 87.7 fL (80.0-100.0); MEAN PLATELET VOLUME 9.8 fL (7.4-10.4); MONOCYTES 8.7 % (2-11); NEUTROPHILS 57.2 % (40-80); PLATELET COUNT 216 10x3/uL (130-400); RDW 12.7 % (11.5-14.5); WBC 5.9 10x3/uL (4.8-10.8)
[2019-09-11 05:57] LABS: CALC OSMOLALITY 283 mosm/kg (275-300); CALCIUM 8.9 mg/dL (8.5-10.1); CARBON DIOXIDE 25.6 mmol/L (21.0-32.0); CHLORIDE - SERUM 102 mmol/L (98-107); CREATININE - SERUM 0.9 mg/dL (0.6-1.3); GLUCOSE 267 mg/dL (74-106); MAGNESIUM - SERUM 1.8 mg/dL (1.8-2.4); POTASSIUM - SERUM 4.1 mmol/L (3.5-5.1); SODIUM 137 mmol/L (136-145); UREA NITROGEN 16 mg/dL (7-18); eGFR NON AFRICAN AMERICAN > 90 mL/min (90-120)
--- NOTE | 2019-09-11 07:37 | NUR ---
resting in bed, no distress noted, sl in place, cont to monitor sugars and labs
[2019-09-11 10:09] LABS: FUNGUS STAIN Final report (())
[2019-09-11 11:41] VITALS: Ht 200.7 cm; Wt 122.9 kg
[2019-09-11 12:31] VITALS: BP 139/77
[2019-09-11 13:48] VITALS: BP 148/103
--- NOTE | 2019-09-11 14:10 | NUR ---
OT NOTE: EXTENSIVE TRAINING FOR COMPENSATORY TECHNIQUES FOR VISUAL FIELD CUT AND DECREASED ACUITY. UNSURE IF PT IS EXHIBITING SLOW PROCESSING OR IS JUST NOT PAYING ATTN TO COMMANDS. TOILETING WITH MIN ASSIST WHICH IS MORE FOR DIRECTIONAL CUES. DISCUSSED DC PLANS AND PTS PREVIOUS LIVING SITUATION WITH CM TODAY; HE IS UNSAFE TO RETURN HOME AT THIS TIME, AND REPORTS THAT HIS IS IN A WC. RACHNA LIVINGSTON, OTR/L [phone]
--- NOTE | 2019-09-11 14:38 | NUR ---
OT NOTE: PT COMPLETED BED MOB TASKS WITH CGA/MIN A. PT HAS CONTINUED VISION DISTURBANCE. PT COMPLETED UB HYGIENE WITH SET UP. PT EDUCATED ON COMPENSATORY TECHNIQUES SECONDARY TO VISION DISTURBANCES. [id number] THANK YOU,TIMOTHY IBANEZ
[2019-09-11 17:28] VITALS: BP 140/108
[2019-09-11 20:00] VITALS: BP 123/77
[2019-09-12] VITALS (10 sets, daily range): BP systolic 119–158; BP diastolic 67–89
[2019-09-12 05:43] LABS: BASOPHILS 0.3 % (0-2); EOSINOPHILS 2.2 % (0-7); HEMATOCRIT 44.2 % (42.0-54.0); HEMOGLOBIN 14.7 g/dL (13.5-17.5); LYMPHOCYTES 30.1 % (15-50); MCH 29.6 pg (26.0-34.0); MCHC 33.3 g/dL (31.0-37.0); MCV 89.1 fL (80.0-100.0); MEAN PLATELET VOLUME 10.4 fL (7.4-10.4); NEUTROPHILS 58.4 % (40-80); PLATELET COUNT 235 10x3/uL (130-400); RBC 4.96 10x6/uL (4.20-6.10); RDW 12.8 % (11.5-14.5); WBC 5.9 10x3/uL (4.8-10.8)
[2019-09-12 05:46] LABS: INR 1.06 (0.85-1.17); PROTIME 13.7 SECONDS (11.6-15.0)
[2019-09-12 06:00] LABS: CALC OSMOLALITY 283 mosm/kg (275-300); CALCIUM 9.1 mg/dL (8.5-10.1); CARBON DIOXIDE 27.1 mmol/L (21.0-32.0); CHLORIDE - SERUM 101 mmol/L (98-107); CREATININE - SERUM 0.9 mg/dL (0.6-1.3); GLUCOSE 243 mg/dL (74-106); MAGNESIUM - SERUM 1.8 mg/dL (1.8-2.4); POTASSIUM - SERUM 4.1 mmol/L (3.5-5.1); SODIUM 137 mmol/L (136-145); UREA NITROGEN 17 mg/dL (7-18); eGFR NON AFRICAN AMERICAN > 90 mL/min (90-120)
--- NOTE | 2019-09-12 06:55 | NUR ---
ALERT AND ORIENTED, SITTING UP ON THE SIDE OF THE BED ON THE PHONE. NO C/O PAIN. NO S/S OF ACUTE DISTRESS NOTED. IV TO LEFT FOREARM, SL. SITE PATENT WITHOUT REDNESS OR SWELLING. SCHEDULED FOR STENT PLACEMENT TODAY, CONSENTS IN CHART SIGNED. ON TELEMETRY 87 SR. DENIES ANY NEEDS AT THIS TIME. CALL LIGHT IN REACH. WILL CONTINUE TO MONITOR.
[2019-09-12 11:08] LABS: CRYPTO AG - CSF Negative (Negative); IGGS - IGG INDEX CSF 0.5 (0.0-0.7)
--- NOTE | 2019-09-12 14:11 | NUR ---
Rehab Note- Acute Inpatient Rehab prescreen order received. The patient continues to have an acute work up having a procedure today per IR. He is a good inpatient acute rehab candidate if in agreeance and willing to participate in the required 3hrs/day of therapy. ALso he has [employer] and will require a PreAuth prior to an acute inpatient rehab stay. Will begin PreAuth process and follow at this time. Thank you for this referral! Alissa Bautista RN Clinical Liaison, [facility] Rehab
--- NOTE | 2019-09-12 18:13 | NUR ---
ALERT AND ORIENTED, TALKING ON CELL PHONE. NO C/O PAIN. NO S/S OF ACUTE DISTRESS NOTED. VITALS STABLE. DRESSING C/D/I. DENIES ANY NEEDS AT THIS TIME. CALL LIGHT IN REACH. WILL CONTINUE TO MONITOR.
--- NOTE | 2019-09-12 20:00 | NUR ---
PATIENT RESTING IN BED WATCHING TV, AND TALKING ON THE PHONE. NO S/S OF ACUTE DISTRESS. NO C/O AT THIS TIME. PATIENT HAS TELEMETRY: 89 SINUS RYTHM. PATIENT HAS IV IN LEFT FOREARM, SALINE LOC. IV IS PATENT WITHOUT REDNESS, SWELLING, OR TENDERNESS. PATIENT HAD STENT PLACED, AND DRESSING C/D/I ON RIGHT GROIN. PATIENT STATED, "I HAVE TROUBLE GETTING MY WORDS OUT. IT TAKES TIME TO EVEN TRY TO SAY WHAT I AM THINKING. MY GETS FRUSTRATED WITH ME." PATIENT STATED HE HAD BEEN HAVING THIS PROBLEM BEFORE THE STENT DUE TO A STROKE. CALL LIGHT WITHIN REACH. WILL CONTINUE TO MONITOR.
[2019-09-13] VITALS: BP 136/68
--- NOTE | 2019-09-13 00:33 | NUR ---
I have reviewed this patient and I concur with the Shift Assessment completed by the Licensed Practical Nurse today this shift.
[2019-09-13 04:00] VITALS: BP 112/55
[2019-09-13 06:08] LABS: CALCIUM 9.2 mg/dL (8.5-10.1); CARBON DIOXIDE 27.5 mmol/L (21.0-32.0); CREATININE - SERUM 1.1 mg/dL (0.6-1.3); MAGNESIUM - SERUM 1.8 mg/dL (1.8-2.4); POTASSIUM - SERUM 4.5 mmol/L (3.5-5.1)
[2019-09-13 06:26] LABS: BASOPHILS 0.2 % (0-2); EOSINOPHILS 1.1 % (0-7); HEMATOCRIT 45.8 % (42.0-54.0); HEMOGLOBIN 15.2 g/dL (13.5-17.5); IMMATURE GRANULOCYTES 0.7 % (0-5); LYMPHOCYTES 24.1 % (15-50); MCH 29.9 pg (26.0-34.0); MCHC 33.2 g/dL (31.0-37.0); MEAN PLATELET VOLUME 10.4 fL (7.4-10.4); MONOCYTES 7.3 % (2-11); NEUTROPHILS 66.6 % (40-80); PLATELET COUNT 262 10x3/uL (130-400); RBC 5.09 10x6/uL (4.20-6.10); RDW 12.8 % (11.5-14.5)
--- NOTE | 2019-09-13 07:20 | NUR ---
REC'D IN BED RESTING WITH EYES CLOSED EASILY TO AROUSED WHEN NAME IS CALLED. RESP EVEN AND UNLABORED WITH NO DISTRESS NOTED. CAN EXPRESS NEEDS AND WANTS. NO C/O NOTED OR VOICED. ASSESSMENT COMPLETED. C/L IN REACH AT BEDSIDE.
[2019-09-13 09:28] VITALS: BP 138/62
--- NOTE | 2019-09-13 09:48 | MORECARE ---
CASE MANAGEMENT DISCHARGE SUMMARY PATIENT: MARY ORTIZ UNIT: [id number] ADM DATE: 09/08/19 AGE: 59 : 62 SEX: M ROOM/BED: D.2234 AUTHOR: NEGRITO VERDIN PHYSICIAN: REFERRING PHYSICIAN: IVY RHODES MD DATE OF SERVICE: 09/13/19 Discharge Plan Patient Name: MARY ORTIZ Facility: [facility]:[place] : 1960 Planned Disposition: Home or Self Care Anticipated Discharge Date: Discharge Date: Expected LOS: Initial Reviewer: [email or web address] Initial Review Date: 09/08/2019 Generated: 09/13/19 10:48 am DCP- Discharge Planning Updated by [email or web address]: Mikayla Sharp on 09/10/19 8:[address] CM RECIEVED A CALL FROM MIKE ALICIA -SENIOR MEDIA BUYER WITH [facility] THAT SHE WILL HELP IF NEEDED WITH DISCHARGE PLANNING [phone] EXT [phone] DCPIA - Discharge Planning Initial Assessment Updated by [email or web address]: Irene Ferguson on 09/13/19 9:46 am * Is the patient Alert and Oriented? Yes * How many steps to enter\exit or inside your home? * PCP LUIZ REMYCK) * [facility] [address] * Preadmission Environment Home with Family * ADLs Independent * Equipment None * List name and contact numbers for known caregivers / representatives who currently or will assist patient after discharge: DEE DEE ( ) [phone] * Verbal permission to speak to the caregivers and representatives has been obtained from the patient. N/A * Community resources currently utilized None * Additional services required to return to the preadmission environment? Yes * Has this patient been hospitalized within the prior 30 days at any hospital? No Patient Name: MARY ORTIZ Page [id number] at 0948 All edits/amendments must be made on the electronic document DICTATION DATE: 09/13/19947 FUNERAL LIMOUSINE DRIVER: CHAR 09/13/19947 RPT#: [id number] DC DATE: STATUS: ADM IN [facility] [address] [place] [address] END OF REPORT
--- NOTE | 2019-09-13 09:55 | MORECARE ---
CASE MANAGEMENT DISCHARGE SUMMARY PATIENT: MARY ORTIZ UNIT: [id number] ADM DATE: 09/08/19 AGE: 59 : 62 SEX: M ROOM/BED: D.2234 AUTHOR: NEGRITO VERDIN PHYSICIAN: REFERRING PHYSICIAN: IVY RHODES MD DATE OF SERVICE: 09/13/19 Discharge Plan Patient Name: MARY ORTIZ Facility: [facility]:[place] : 1960 Planned Disposition: Home or Self Care Anticipated Discharge Date: Discharge Date: Expected LOS: Initial Reviewer: [email or web address] Initial Review Date: 09/08/2019 Generated: 09/13/19 10:54 am Comments DCP- Discharge Planning Updated by [email or web address]: Irene Ferguson on 09/13/19 8:[address] Patient Name: MARY ORTIZ Admission Status: ER Accout number: [id number] Admission Date: 09-08-2019 : 1960 Admission Diagnosis:CEREBRAL INFARCTION, UNSPECIFIED Attending: IVY RHODES Current LOS: 5 Anticipated DC Date: Planned Disposition: Home or Self Care Primary Insurance: [employer] Discharge Planning Comments: CM met with patient to complete initial dc planning assessment. CM educated patient on the CM role and verbal consent given by patient to complete assessment. Patient lives at home with his where he was independent with his care. At discharge patient would like to go home and feels this is a safe discharge. CM discussed availability of home health, rehab services, and medical equipment. He would like to either have home health or OP PT, but would rather not go to inpatient rehab. He does not have and DME and will need a walker at home. He states that his can drive him where ever he needs to go and help with whatever. [facility]E for [facility], [facility], and OP PT at [facility]. I will speak to PT to see what the safest DC plan is for him. Patient denied known discharge needs at this time. CM will continue to follow and will assist as needed with dc plans/needs. Coffee Taster: Irene Ferguson DCP- Discharge Planning Updated by [email or web address]: Mikayla Sharp on 09/10/19 8:[address] CM RECIEVED A CALL FROM MIKE ALICIA -MANAGER CARE WITH [facility] THAT SHE WILL HELP IF NEEDED WITH DISCHARGE PLANNING [phone] EXT [phone] DCPIA - Discharge Planning Initial Assessment Updated by [email or web address]: Irene Ferguson on 09/13/19 9:46 am * Is the patient Alert and Oriented? Yes * How many steps to enter\exit or inside your home? * PCP LUIZ ALVAREZ ([place]) * Pharmacy [facility] [address] * Preadmission Environment Home with Family * ADLs Independent * Equipment None * List name and contact numbers for known caregivers / representatives who currently or will assist patient after discharge: DEE DEE ( ) [phone] * Verbal permission to speak to the caregivers and representatives has been obtained from the patient. N/A * Community resources currently utilized None * Additional services required to return to the preadmission environment? Yes * Has this patient been hospitalized within the prior 30 days at any hospital? No Coverage Notice Reviewer: [id number] - Irene Ferguson Notice Issued Date-Time: 09/13/2019 9:25 Notice Type: Patient Choice Letter Notice Delivered To: Patient Relationship to Patient: Rubber Goods Tester Water Name: Delivery Method: HAND - Hand Delivered Joi Days: Prior Verbal Notification: Recipient Understood Notice: Yes Recipient Signature: Yes Med Rec Note Co-signed by Attending: Coverage Notice Comment: [facility] Last DP export: 09/13/19 8:48 am Patient Name: MARY ORTIZ Page 69587 at 0955 All edits/amendments must be made on the electronic document DICTATION DATE: 09/13/19953 PAPER MACHINE SUPERVISOR: CHAR 09/13/19953 RPT#: [id number] DC DATE: STATUS: ADM IN [facility] [address] [place] [address] END OF REPORT
--- NOTE | 2019-09-13 10:01 | MORECARE ---
CASE MANAGEMENT DISCHARGE SUMMARY PATIENT: MARY ORTIZ UNIT: [id number] ADM DATE: 09/08/19 AGE: 59 : 62 SEX: M ROOM/BED: D.2234 AUTHOR: LAMBERT,DOC PHYSICIAN: REFERRING PHYSICIAN: IVY RHODES MD DATE OF SERVICE: 09/13/19 Discharge Plan Patient Name: MARY ORTIZ Facility: [facility]:[place] : 1960 Planned Disposition: Home or Self Care Anticipated Discharge Date: Discharge Date: Expected LOS: Initial Reviewer: [email or web address] Initial Review Date: 09/08/2019 Generated: 09/13/19 11:01 am Comments DCP- Discharge Planning Updated by [email or web address]: Irene Ferguson on 09/13/19 8:[address] WALKER ORDER SENT TO [facility] THEY WILL GET ONE UP HERE FOR HIM DCP- Discharge Planning Updated by [email or web address]: Irene Ferguson on 09/13/19 8:[address] Patient Name: MARY ORTIZ Admission Status: ER Accout number: [id number] Admission Date: 09-08-2019 : 1960 Admission Diagnosis:CEREBRAL INFARCTION, UNSPECIFIED Attending: IVY RHODES Current LOS: 5 Anticipated DC Date: Planned Disposition: Home or Self Care Primary Insurance: [employer] O Discharge Planning Comments: CM met with patient to complete initial dc planning assessment. CM educated patient on the CM role and verbal consent given by patient to complete assessment. Patient lives at home with his where he was independent with his care. At discharge patient would like to go home and feels this is a safe discharge. CM discussed availability of home health, rehab services, and medical equipment. He would like to either have home health or OP PT, but would rather not go to inpatient rehab. He does not have and DME and will need a walker at home. He states that his can drive him where ever he needs to go and help with whatever. [facility] for [facility], [facility], and [facility] PT at [facility]. I will speak to PT to see what the safest DC plan is for him. Patient denied known discharge needs at this time. CM will continue to follow and will assist as needed with dc plans/needs. Assurance Officer: Irene Ferguson DCP- Discharge Planning Updated by [email or web address]: Mikaylawenceslao Riosr on 09/10/19 8:[address] CM RECIEVED A CALL FROM MIKE ALICIA -CONTACT OFFICER WITH [facility] THAT SHE WILL HELP IF NEEDED WITH DISCHARGE PLANNING [phone] EXT [phone] DCPIA - Discharge Planning Initial Assessment Updated by [email or web address]: Irene Ferguson on 09/13/19 9:46 am * Is the patient Alert and Oriented? Yes * How many steps to enter\exit or inside your home? * PCP LUIZ ALVAREZ ([place]) * Pharmacy [facility] [address] * Preadmission Environment Home with Family * ADLs Independent * Equipment None * List name and contact numbers for known caregivers / representatives who currently or will assist patient after discharge: DEE DEE ( ) [phone] * Verbal permission to speak to the caregivers and representatives has been obtained from the patient. N/A * Community resources currently utilized None * Additional services required to return to the preadmission environment? Yes * Has this patient been hospitalized within the prior 30 days at any hospital? No Coverage Notice Reviewer: [id number] - Irene Ferguson Notice Issued Date-Time: 09/13/2019 9:25 Notice Type: Patient Choice Letter Notice Delivered To: Patient Relationship to Patient: Courier Name: Delivery Method: HAND - Hand Delivered Joi Days: Prior Verbal Notification: Recipient Understood Notice: Yes Recipient Signature: Yes Med Rec Note Co-signed by Attending: Coverage Notice Comment: [facility] Last DP export: 09/13/19 8:55 am Patient Name: MARY ORTIZ Page [phone] at 1001 All edits/amendments must be made on the electronic document DICTATION DATE: 09/13/19 1001 BICYCLE COURIER: CHAR 09/13/19 1001 RPT#: [id number] DC DATE: STATUS: ADM IN [facility] [address] [place] [address] END OF REPORT
--- NOTE | 2019-09-13 10:31 | NUR ---
I have reviewed this patient and I concur with the Shift Assessment completed by the Licensed Practical Nurse today this shift.
--- NOTE | 2019-09-13 12:17 | NUR ---
OT NOTE: DISCUSSED DC POC WITH CM THIS MORNING. SHES REPORTING THAT PT VERY MUCH WANTS TO GO HOME WITH , BUT IS AGREEABLE TO COME TO OP THERAPY AND CAN BRING HIM ANYTIME, SHE DOES NOT WORK. PT VERY TEARFUL TODAY. D/W PT AND CM.. PTS HAS PURCHASED WALKER.. PT AWARE OF VISUAL DEFECITS AND NEED FOR ASSISTANCE FROM FOR MOST ADLS. PT UP IN CHAIR..AGREEABLE TO THERAPY BUT STATES THAT HE IS NOT DOING ANYTHING ELSE UNTIL HE SPEAKS WITH PHYSICIAN. RACHNA LIVINGSTON, OTR/L [phone]
[2019-09-13] MEDS ORDERED: TRICOR145 MG PO (13:00)
[2019-09-13] MEDS ORDERED: ASPIRIN325 MG PO (13:00)
[2019-09-13] MEDS ORDERED: ELIQUIS5 MG PO (13:00)
[2019-09-13 13:01] VITALS: BP 129/71
--- NOTE | 2019-09-13 13:29 | NUR ---
CALLED AND LEFT MESSAGES FOR D/C SAW SMITH AND DR HUGGINS OFFICE. AWAITING CALL BACK.
--- NOTE | 2019-09-13 13:39 | MORECARE ---
CASE MANAGEMENT DISCHARGE SUMMARY PATIENT: MARY ORTIZ UNIT: [id number] ADM DATE: 09/08/19 AGE: 59 : 62 SEX: M ROOM/BED: D.2234 AUTHOR: LAMBERTDOC PHYSICIAN: REFERRING PHYSICIAN: IVY RHODES MD DATE OF SERVICE: 09/13/19 Discharge Plan Patient Name: MARY ORTIZ Facility: [facility]:[place] : 1960 Planned Disposition: Home or Self Care Anticipated Discharge Date: Discharge Date: Expected LOS: Initial Reviewer: [email or web address] Initial Review Date: 09/08/2019 Generated: 09/13/19 2:39 pm Comments DCP- Discharge Planning Updated by [id number]: Irene Ferguson on 09/13/19 8:[address] WALKER ORDER SENT TO [facility] THEY WILL GET ONE UP HERE FOR HIM DCP- Discharge Planning Updated by [email or web address]: Irene Ferguson on 09/13/19 8:[address] Patient Name: MARY ORTIZ Admission Status: ER Accout number: [id number] Admission Date: 09-08-2019 : 1960 Admission Diagnosis:CEREBRAL INFARCTION, UNSPECIFIED Attending: IVY RHODES Current LOS: 5 Anticipated DC Date: Planned Disposition: Home or Self Care Primary Insurance: [employer] O Discharge Planning Comments: CM met with patient to complete initial dc planning assessment. CM educated patient on the CM role and verbal consent given by patient to complete assessment. Patient lives at home with his where he was independent with his care. At discharge patient would like to go home and feels this is a safe discharge. CM discussed availability of home health, rehab services, and medical equipment. He would like to either have home health or OP PT, but would rather not go to inpatient rehab. He does not have and DME and will need a walker at home. He states that his can drive him where ever he needs to go and help with whatever. [facility]ENTE for [facility], [facility], and OP PT at [facility]. I will speak to PT to see what the safest DC plan is for him. Patient denied known discharge needs at this time. CM will continue to follow and will assist as needed with dc plans/needs. Stenciling Machine Tender: Irene Ferguson DCP- Discharge Planning Updated by [email or web address]: Mikaylawenceslao Riosr on 09/10/19 8:[address] CM RECIEVED A CALL FROM MIKE ALICIA -POWER PRESS SUPERVISOR WITH [facility] THAT SHE WILL HELP IF NEEDED WITH DISCHARGE PLANNING [phone] EXT [phone] DCPIA - Discharge Planning Initial Assessment Updated by [email or web address]: Irene Ferguson on 09/13/19 9:46 am * Is the patient Alert and Oriented? Yes * How many steps to enter\exit or inside your home? * PCP LUIZ ALVAREZ ([place]) * Pharmacy [facility] [address] * Preadmission Environment Home with Family * ADLs Independent * Equipment None * List name and contact numbers for known caregivers / representatives who currently or will assist patient after discharge: DEE DEE ( ) [phone] * Verbal permission to speak to the caregivers and representatives has been obtained from the patient. N/A * Community resources currently utilized None * Additional services required to return to the preadmission environment? Yes * Has this patient been hospitalized within the prior 30 days at any hospital? No Coverage Notice Reviewer: [id number] - Irene Ferguson Notice Issued Date-Time: 09/13/2019 9:25 Notice Type: Patient Choice Letter Notice Delivered To: Patient Relationship to Patient: Splitting Machine Operator Name: Delivery Method: HAND - Hand Delivered Joi Days: Prior Verbal Notification: Recipient Understood Notice: Yes Recipient Signature: Yes Med Rec Note Co-signed by Attending: Coverage Notice Comment: [facility] Last DP export: 09/13/19 9:01 am Patient Name: MARY ORTIZ Page 48795 at 1339 All edits/amendments must be made on the electronic document DICTATION DATE: 09/13/19 1339 GEODETIC TECHNICIAN: CHAR 09/13/19 1339 RPT#: [id number] DC DATE: STATUS: ADM IN [facility] [address] [place] [address] END OF REPORT
--- NOTE | 2019-09-13 13:55 | MORECARE ---
CASE MANAGEMENT DISCHARGE SUMMARY PATIENT: MARY ORTIZ UNIT: [id number] ADM DATE: 09/08/19 AGE: 59 : 62 SEX: M ROOM/BED: D.2234 AUTHOR: LAMBERTDOC PHYSICIAN: REFERRING PHYSICIAN: IVY RHODES MD DATE OF SERVICE: 09/13/19 Discharge Plan Patient Name: MARY ORTIZ Facility: [facility]:[place] : 1960 Planned Disposition: Home or Self Care Anticipated Discharge Date: Discharge Date: Expected LOS: Initial Reviewer: [email or web address] Initial Review Date: 09/08/2019 Generated: 09/13/19 2:55 pm Comments DCP- Discharge Planning Updated by [email or web address]: Irene Ferguson on 09/13/19 8:[address] WALKER ORDER SENT TO [facility] THEY WILL GET ONE UP HERE FOR HIM DCP- Discharge Planning Updated by [email or web address]: Irene Ferguson on 09/13/19 8:[address] Patient Name: MARY ORTIZ Admission Status: ER Accout number: [id number] Admission Date: 09-08-2019 : 1960 Admission Diagnosis:CEREBRAL INFARCTION, UNSPECIFIED Attending: IVY RHODES Current LOS: 5 Anticipated DC Date: Planned Disposition: Home or Self Care Primary Insurance: [employer] O Discharge Planning Comments: CM met with patient to complete initial dc planning assessment. CM educated patient on the CM role and verbal consent given by patient to complete assessment. Patient lives at home with his where he was independent with his care. At discharge patient would like to go home and feels this is a safe discharge. CM discussed availability of home health, rehab services, and medical equipment. He would like to either have home health or OP PT, but would rather not go to inpatient rehab. He does not have and DME and will need a walker at home. He states that his can drive him where ever he needs to go and help with whatever. VICENTE for [facility], [facility], and OP PT at [facility]. I will speak to PT to see what the safest DC plan is for him. Patient denied known discharge needs at this time. CM will continue to follow and will assist as needed with dc plans/needs. Hebrew Teacher: Irene Ferguson DCP- Discharge Planning Updated by [email or web address]: Mikayla Riosr on 09/10/19 8:[address] CM RECIEVED A CALL FROM MIKE ALICIA -OUTSOLES CHANNEL OPENER WITH [facility] THAT SHE WILL HELP IF NEEDED WITH DISCHARGE PLANNING [phone] EXT [phone] DCPIA - Discharge Planning Initial Assessment Updated by [id number]: Irene Ferguson on 09/13/19 9:46 am * Is the patient Alert and Oriented? Yes * How many steps to enter\exit or inside your home? * PCP LUIZ ALVAREZ ([place]) * Pharmacy [facility] [address] * Preadmission Environment Home with Family * ADLs Independent * Equipment None * List name and contact numbers for known caregivers / representatives who currently or will assist patient after discharge: DEE DEE ( ) [phone] * Verbal permission to speak to the caregivers and representatives has been obtained from the patient. N/A * Community resources currently utilized None * Additional services required to return to the preadmission environment? Yes * Has this patient been hospitalized within the prior 30 days at any hospital? No External Providers External Provider: [facility] Next Contact Date: Service Request Date: Service Type: Resolution: Reviewer: Comments: Coverage Notice Reviewer: [id number] - Irene Ferguson Notice Issued Date-Time: 09/13/2019 9:25 Notice Type: Patient Choice Letter Notice Delivered To: Patient Relationship to Patient: Dispatcher Radioactive Waste Disposal Name: Delivery Method: HAND - Hand Delivered Joi Days: Prior Verbal Notification: Recipient Understood Notice: Yes Recipient Signature: Yes Med Rec Note Co-signed by Attending: Coverage Notice Comment: [facility] AT [facility] Last DP export: 09/13/19 12:39 pm Patient Name: MARY ORTIZ Page 97009 at 1355 All edits/amendments must be made on the electronic document DICTATION DATE: 09/13/19 1356 INSECTICIDE EXPERT: CHAR 09/13/19 1355 RPT#: [id number] DC DATE: STATUS: ADM IN [facility] [address] [place] [address] END OF REPORT
--- NOTE | 2019-09-13 13:59 | NUR ---
PAGE INTO DR SMITH. AWAITING CALL BACK.
--- NOTE | 2019-09-13 14:07 | NUR ---
DR HUGGINS TO CALL ME BACK WITH [facility] FOR DISCHARGE. ALSO, TO BE DISCHARGED ON 81 MG OF ASA. STILL AWAITING CALL BACK FROM DR SMITH.
[2019-09-13] MEDS ORDERED: BAYER CHEWABLE81 MG PO (14:08)
--- NOTE | 2019-09-13 14:20 | MORECARE ---
CASE MANAGEMENT DISCHARGE SUMMARY PATIENT: MARY ORTIZ UNIT: [id number] ADM DATE: 09/08/19 AGE: 59 : 62 SEX: M ROOM/BED: D.2234 AUTHOR: LAMBERTDOC PHYSICIAN: REFERRING PHYSICIAN: IVY RHODES MD DATE OF SERVICE: 09/13/19 Discharge Plan Patient Name: MARY ORTIZ Facility: [facility]:[place] : 1960 Planned Disposition: Home or Self Care Anticipated Discharge Date: Discharge Date: Expected LOS: Initial Reviewer: [email or web address] Initial Review Date: 09/08/2019 Generated: 09/13/19 3:19 pm Comments DCP- Discharge Planning Updated by [email or web address]: Irene Ferguson on 09/13/19 1:[address] PATIENT WILL BE DISCHARGING HOME TODAY AND WALKER HAS BEEN DELIVERED TO HIM AND HE WILL BE HAVE [facility] . I HAVE SPOKE WITH [facility]. THEY WILL START CARE MONDAY DCP- Discharge Planning Updated by [id number]: Irene Ferguson on 09/13/19 8:[address] WALKER ORDER SENT TO [facility] THEY WILL GET ONE UP HERE FOR HIM DCP- Discharge Planning Updated by [id number]: Irene Ferguson on 09/13/19 8:[address] Patient Name: MARY ORTIZ Admission Status: ER Accout number: [id number] Admission Date: 09-08-2019 : 1960 Admission Diagnosis:CEREBRAL INFARCTION, UNSPECIFIED Attending: IVY RHODES Current LOS: 5 Anticipated DC Date: Planned Disposition: Home or Self Care Primary Insurance: [employer] O Discharge Planning Comments: CM met with patient to complete initial dc planning assessment. CM educated patient on the CM role and verbal consent given by patient to complete assessment. Patient lives at home with his where he was independent with his care. At discharge patient would like to go home and feels this is a safe discharge. CM discussed availability of home health, rehab services, and medical equipment. He would like to either have home health or OP PT, but would rather not go to inpatient rehab. He does not have and DME and will need a walker at home. He states that his can drive him where ever he needs to go and help with whatever. VICENTE for [facility], [facility], and OP PT at [facility]. I will speak to PT to see what the safest DC plan is for him. Patient denied known discharge needs at this time. CM will continue to follow and will assist as needed with dc plans/needs. Parts Room Clerk: Irene Ferguson DCP- Discharge Planning Updated by [id number]: Mikayla Sharp on 09/10/19 8:[address] CM RECIEVED A CALL FROM MIKE ALICIA -SAW GRINDER WITH [facility] THAT SHE WILL HELP IF NEEDED WITH DISCHARGE PLANNING [phone] EXT [phone] DCPIA - Discharge Planning Initial Assessment Updated by [email or web address]: Irene Ferguson on 09/13/19 9:46 am * Is the patient Alert and Oriented? Yes * How many steps to enter\exit or inside your home? * PCP [facility] ALV[facility]Z ([place]) * [facility] [address] * Preadmission Environment Home with Family * ADLs Independent * Equipment None * List name and contact numbers for known caregivers / representatives who currently or will assist patient after discharge: DEE DEE ( ) [phone] * Verbal permission to speak to the caregivers and representatives has been obtained from the patient. N/A * Community resources currently utilized None * Additional services required to return to the preadmission environment? Yes * Has this patient been hospitalized within the prior 30 days at any hospital? No Coverage Notice Reviewer: [id number] - Irene Ferguson Notice Issued Date-Time: 09/13/2019 9:25 Notice Type: Patient Choice Letter Notice Delivered To: Patient Relationship to Patient: Molded Goods Spot Picker Name: Delivery Method: HAND - Hand Delivered Joi Days: Prior Verbal Notification: Recipient Understood Notice: Yes Recipient Signature: Yes Med Rec Note Co-signed by Attending: Coverage Notice Comment: [facility] OP PT AT [facility] Last DP export: 09/13/19 12:55 pm Patient Name: MARY ORTIZ Page 45505 at 1420 All edits/amendments must be made on the electronic document DICTATION DATE: 09/13/19 1419 MANAGER SOCIAL RESPONSIBILITY: CHAR 09/13/19 141 RPT#: [id number] DC DATE: STATUS: ADM IN [facility] [address] [place] [address] END OF REPORT
--- NOTE | 2019-09-13 15:05 | NUR ---
DR SMITH TO CALL BACK WITH [facility] FOR DISCHARGE.
--- NOTE | 2019-09-13 16:04 | NUR ---
DC HOME AT THIS TIME VOICE UNDERSTANDING OF DC ORDERS. IV DC. STABLE CONDITION UPON DEPARTURE.
--- NOTE | 2019-09-15 10:21 | MORECARE ---
CASE MANAGEMENT DISCHARGE SUMMARY PATIENT: MARY ORTIZ UNIT: [id number] ADM DATE: 09/08/19 AGE: 59 : 62 SEX: M ROOM/BED: D.2234 AUTHOR: LAMBERT,DOC PHYSICIAN: REFERRING PHYSICIAN: IVY RHODES MD DATE OF SERVICE: 09/15/19 Discharge Plan Patient Name: MARY ORTIZ Facility: [facility]:[place] : 1960 Planned Disposition: Home or Self Care Anticipated Discharge Date: Discharge Date: 09/13/2019 Expected LOS: Initial Reviewer: [email or web address] Initial Review Date: 09/08/2019 Generated: 09/15/19 11:21 am Comments DCP- Discharge Planning Updated by [email or web address]: Irene Ferguson on 09/13/19 1:[address] PATIENT WILL BE DISCHARGING HOME TODAY AND WALKER HAS BEEN DELIVERED TO HIM AND HE WILL BE HAVE [facility] . I HAVE SPOKE WITH [facility]. THEY WILL START CARE MONDAY DCP- Discharge Planning Updated by [email or web address]: Irene Ferguson on 09/13/19 8:[address] WALKER ORDER SENT TO [facility] THEY WILL GET ONE UP HERE FOR HIM DCP- Discharge Planning Updated by [email or web address]: Irene Ferguson on 09/13/19 8:[address] Patient Name: MARY ORTIZ Admission Status: ER Accout number: [id number] Admission Date: 09-08-2019 : 1960 Admission Diagnosis:CEREBRAL INFARCTION, UNSPECIFIED Attending: IVY RHODES Current LOS: 5 Anticipated DC Date: Planned Disposition: Home or Self Care Primary Insurance: [employer]ature O Discharge Planning Comments: CM met with patient to complete initial dc planning assessment. CM educated patient on the CM role and verbal consent given by patient to complete assessment. Patient lives at home with his where he was independent with his care. At discharge patient would like to go home and feels this is a safe discharge. CM discussed availability of home health, rehab services, and medical equipment. He would like to either have home health or OP PT, but would rather not go to inpatient rehab. He does not have and DME and will need a walker at home. He states that his can drive him where ever he needs to go and help with whatever. [facility] for [facility], and OP PT at [facility]. I will speak to PT to see what the safest DC plan is for him. Patient denied known discharge needs at this time. CM will continue to follow and will assist as needed with dc plans/needs. Floor Renovator: Irene Ferguson DCP- Discharge Planning Updated by [id number]: Mikayla Sharp on 09/10/19 8:[address] CM RECIEVED A CALL FROM MIKE ALICIA -CAN CRIMPER WITH [facility] THAT SHE WILL HELP IF NEEDED WITH DISCHARGE PLANNING [phone] DCPIA - Discharge Planning Initial Assessment Updated by [email or web address]: Irene Ferguson on 09/13/19 9:46 am * Is the patient Alert and Oriented? Yes * How many steps to enter\exit or inside your home? * PCP LUIZ ALVAREZ (EDMUND) * Pharmacy [facility] [address] * Preadmission Environment Home with Family * ADLs Independent * Equipment None * List name and contact numbers for known caregivers / representatives who currently or will assist patient after discharge: DEE DEE ( ) [phone] * Verbal permission to speak to the caregivers and representatives has been obtained from the patient. N/A * Community resources currently utilized None * Additional services required to return to the preadmission environment? Yes * Has this patient been hospitalized within the prior 30 days at any hospital? No Coverage Notice Reviewer: [id number] - Irene Ferguson Notice Issued Date-Time: 09/13/2019 9:25 Notice Type: Patient Choice Letter Notice Delivered To: Patient Relationship to Patient: Fingerer Name: Delivery Method: HAND - Hand Delivered Joi Days: Prior Verbal Notification: Recipient Understood Notice: Yes Recipient Signature: Yes Med Rec Note Co-signed by Attending: Coverage Notice Comment: [facility] AT [facility] Last DP export: 09/13/19 1:20 pm Patient Name: MARY ORTIZ Page [id number] at 1021 All edits/amendments must be made on the electronic document DICTATION DATE: 09/15/19 1021 MAGNETO SPECIALIST: CHAR 09/15/19 1021 RPT#: [id number] DC DATE:09/13/19 STATUS: DIS IN [facility] [address] [place] [address] END OF REPORT
== END 2019-09-13 16:05 | disposition home health service (06) | DRG 38 ==
LOC: D.ER 10:44 → D.MS 13:57
PROVIDERS: Emergency Medicine; General Practice; Radiology Diagnostic Radiology; ADMIT Internal Medicine Nephrology; ATTEND Internal Medicine Nephrology
PROC: 009U3ZZ Drainage of Spinal Canal, Percutaneous Approach (ICD-10-PCS; 2019-09-08)
PROC: B01B1ZZ Fluoroscopy of Spinal Cord using Low Osmolar Contrast (ICD-10-PCS; 2019-09-08)
PROC: 037 Upper Arteries, Dilation (ICD-10-PCS; principal; 2019-09-12 13:00)
DX: I63.132 Cerebral infarction due to embolism of left carotid artery (principal); E87.1 Hypo-osmolality and hyponatremia; N17.9 Acute kidney failure, unspecified; F17.203 Nicotine dependence unspecified, with withdrawal; I63.112 Cerebral infarction due to embolism of left vertebral artery; I10 Essential (primary) hypertension; E78.5 Hyperlipidemia, unspecified; I25.10 Atherosclerotic heart disease of native coronary artery without angina pectoris; E11.9 Type 2 diabetes mellitus without complications; K21.9 Gastro-esophageal reflux disease without esophagitis

== ENCOUNTER 2019-10-14 11:06 | Emergency (ER) | payer BC ==
[~2019-10-14] VITALS: Ht 200.7 cm; Wt 122.7 kg
[~2019-10-14 11:06] MED LIST changes: +ASPIRIN325 MG PO; +BAYER CHEWABLE81 MG PO; +ELIQUIS5 MG PO; +OMEPRAZOLE40 MG PO; +TRICOR145 MG PO; +ZOFRAN4 MG PO
[2019-10-14 11:07] VITALS: Ht 200.7 cm; Wt 122.7 kg
[2019-10-14 11:26] LABS: BASOPHILS 0.4 % (0-2); EOSINOPHILS 0.9 % (0-7); HEMOGLOBIN 14.9 g/dL (13.5-17.5); IMMATURE GRANULOCYTES 0.4 % (0-5); LYMPHOCYTES 29.1 % (15-50); MCH 30.2 pg (26.0-34.0); MCHC 33.9 g/dL (31.0-37.0); MCV 89.2 fL (80.0-100.0); MEAN PLATELET VOLUME 9.6 fL (7.4-10.4); MONOCYTES 7.6 % (2-11); NEUTROPHILS 61.6 % (40-80); RBC 4.93 10x6/uL (4.20-6.10); RDW 12.9 % (11.5-14.5); WBC 6.7 10x3/uL (4.8-10.8)
[2019-10-14 11:29] LABS: PLATELET COUNT 169 10x3/uL (130-400)
[2019-10-14 11:35] LABS: CALC OSMOLALITY 282 mosm/kg (275-300); CALCIUM 9.2 mg/dL (8.5-10.1); CARBON DIOXIDE 30.4 mmol/L (21.0-32.0); CHLORIDE - SERUM 104 mmol/L (98-107); CREATININE - SERUM 0.9 mg/dL (0.6-1.3); POTASSIUM - SERUM 4.4 mmol/L (3.5-5.1); SODIUM 139 mmol/L (136-145); UREA NITROGEN 18 mg/dL (7-18); eGFR NON AFRICAN AMERICAN > 90 mL/min (90-120)
[2019-10-14 11:36] LABS: APTT 32.3 SECONDS (22.8-39.4); INR 1.12 (0.85-1.17); PROTIME 14.4 SECONDS (11.6-15.0)
[2019-10-14 11:37] LABS: GLUCOSE 157 mg/dL (74-106)
[2019-10-14 11:50] LABS: ALBUMIN 3.8 g/dL (3.4-5.0); ALKALINE PHOSPHATASE 85 U/L (30-120); ALT (SGPT) 28 U/L (10-68); BILIRUBIN - TOTAL 0.39 mg/dL (0.2-1.3); CREATINE KINASE 160 UL (21-232); MAGNESIUM - SERUM 1.9 mg/dL (1.8-2.4); PROTEIN - SERUM 7.1 g/dL (6.4-8.2); THYROID STIMULATING HORMONE 1.24 uIU/mL (0.36-3.74); TROPONIN-I < 0.017 ng/mL (0.000-0.060)
[2019-10-14 16:44] VITALS: BP 137/83
== END 2019-10-14 16:44 | disposition other institution (70) ==
LOC: D.ER 11:06
PROVIDERS: Family Medicine
DX: I63.039 Cerebral infarction due to thrombosis of unspecified carotid artery (principal); R29.810 Facial weakness; R47.1 Dysarthria and anarthria; I10 Essential (primary) hypertension; Z72.0 Tobacco use

== ENCOUNTER 2020-07-20 06:54 | Day surgery (SDC) | payer BC, MEDICAID ==
[~2020-07-20] VITALS: Ht 200.7 cm; Wt 121.8 kg
--- NOTE | ~2020-07-20 | HEMODYNAMI ---
PATIENT:MARY ORTIZ MEDICAL RECORD: [id number] : 62 LOCATION:D. ADMISSION DATE: 07/20/20 Generatedon:110:54 Patient name: MARY ORTIZ Patient #: [id number] SSN: : 1960 Date of study: 07/20/2020 Page: Of Hemodynamic Procedure Report Patient Data Patient Demographics Procedure consent was obtained First Name: MARY Gender: Male Last Name: ANGEL : 1960 Middle Initial: LAURA Age: 60 year(s) Patient #: [id number] Race: Unknown Additional ID: [id number] Contact details [address]: [address] [place] [address] State: [place] City: [place] Zip code: [address] Past Medical History Allergies: No known allergies Admission Admission Data Admission Date: 07/20/2020 Admission Time: 6:54 Procedure Procedure Types Cath Procedure Peripheral Cath Diagnostic Procedure Miscellaneous Procedure Description Procedure Date Procedure Date: 07/20/2020 Procedure Start Time: 10:10 Procedure Staff Name Function Fei Jacobo MD Performing Physician Danielito Black RT Monitor DYLLAN DARLING RT Scrub Salma Nagy RN Nurse Ramila Deluca RN Nurse Procedure Data Cath Procedure Fluoroscopy Diagnostic fluoroscopy Total fluoroscopy Time: time: 13.2 min 13.2 min Diagnostic fluoroscopy Total fluoroscopy dose: 270 dose: 270 mGy mGy Contrast Material Contrast Material Type Amount (ml) Isovue 300 40 Diagnostic catheters Device Type Used For End Catheter Placement Merit ULTRA BOLUS FLUSH 5Fr 90CM catheter ([id number]) Merit Impress Bean Aortic Root 5FR. 100CM catheter Angiography ([id number]) Angiodynamics SOS OMNI 2 NON B 5FR 65CM catheter ([id number]) Cook HN5 5F/100CM catheter ([id number]) DIAGNOSTIC JB3 4Fr catheter (758017) Procedure Medications Medication Administration Route Dosage Heparin Flush Bag added to field 3 bags (1000units/500ml NS) Lidocaine 1% added to field 20 Versed I.V. 1 mg Fentanyl I.V. 50 mcg Heparin Bolus I.V. 6000 units Versed I.V. 0.5 mg Fentanyl I.V. 25 mcg Versed I.V. 0.5 mg Fentanyl I.V. 25 mcg Hemodynamics Rest Heart Rate: 83 (bpm) Snapshots Pre Cath Intra NCS Post Cath Vital Signs Time Heart Resp SPO2 etCO2 NIBP (mmHg) Rhythm Pain Sedation Rate (ipm) (%) (mmHg) Status Level (bpm) 9:57:00 81 20 97 28.2 147/81(108) NSR 0 (11) 10(A) , No pain 10:01:16 82 22 97 29 145/84(110) NSR 0 (11) 10(A) , No pain 10:05:29 85 19 97 29.7 144/83(111) NSR 0 (11) 10(A) , No pain 10:09:41 82 40 97 30.5 147/87(113) NSR 0 (11) 10(A) , No pain 10:13:51 85 23 97 35.1 138/87(112) NSR 0 (11) 8(A) , No pain 10:18:01 87 22 97 29.7 138/76(111) NSR 0 (11) 8(A) , No pain 10:22:13 86 19 96 20.6 137/82(107) NSR 0 (11) 8(A) , No pain 10:27:06 85 22 96 13.7 143/79(113) NSR 0 (11) 8(A) , No pain 10:31:20 83 20 96 32.8 139/85(110) NSR 0 (11) 8(A) , No pain 10:35:34 83 18 96 32.8 140/80(116) NSR 0 (11) 8(A) , No pain 10:39:48 84 19 96 32.8 144/80(107) NSR 0 (11) 8(A) , No pain 10:44:02 83 19 96 11.4 136/82(108) NSR 0 (11) 8(A) , No pain 10:49:01 78 19 96 30.5 Measuring NSR 0 (11) 8(A) , No pain 10:49:17 83 19 96 29.7 136/75(115) NSR 0 (11) 8(A) , No pain 10:53:27 82 19 96 32 146/90(115) NSR 0 (11) 8(A) , No pain Medications Time Medication Route Dose Verified Delivered Reason Notes Effec tiveness by by 9:55:47 Heparin Flush added 3 Fei Enamorado used for Bag to bags Donnell Jacobo procedure (1000units/500ml field MD ANTONIO NS) 9:56:04 Lidocaine 1% added 20ml Fei Enamorado used for to vial Donnell Donnell procedure field MD ANTONIO 10:09:58 Versed I.V. 1 mg Fei Marsh for Donnell Lilo sedation RN 10:10:14 Fentanyl I.V. 50 Fei Marsh for mcg Donnell Lilo sedation MD DELA CRUZ 10:15:15 Heparin Bolus I.V. 6000 Fei Marsh used for units Donnell Lilo procedure MD DELA CRUZ 10:40:37 Versed I.V. 0.5 Fei Marsh for mg Donnell Lilo sedation RN 10:40:55 Fentanyl I.V. 25 Fei Marsh for mcg Donnell Lilo sedation MD DELA CRUZ 10:48:12 Fentanyl I.V. 25 Fei Marsh for mcg Donnell Lilo sedation MD DELA CRUZ 10:48:38 Versed I.V. 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 Start room use. 9:37:04 Use device set IR Diagnostic 9:37:06 ACIST Syringe (03555) opened to sterile field. 9:37:07 ACIST Hand Control (07394) opened to sterile field. 9:37:08 ACIST Manifold (49540) opened to sterile field. 9:37:08 Bag Decanter (2002S) opened to sterile field. 9:37:08 Sterile Angiographic Pack opened to sterile field. 9:37:09 Tegaderm 4 x 4 (1626W) opened to sterile field. 9:37:13 Time tracking: Regular hours (M-F 7:00 - 5:00) 9:37:19 Plan of Care:Hemodynamics will remain stable., Cardiac rhythm will remain stable., Comfort level will be maintained., Respiratory function will remain adequate., Patient/ family verbilizes understanding of procedure., Procedure tolerated without complication., Recovers from procedure without complications.. 9:37:25 Patient received from Outpatients to IR Alert and oriented. Tansferred to table in Supine position. 9:37:28 Signed procedure consent form obtained from patient. 9:37:37 Correct patient and procedure confirmed by team. 9:37:37 ECG and BP/O2 sat monitors applied to patient. 9:37:38 Full Disclosure recording started 9:37:39 - 9:37:42 H&P Date Dictated: 07/20/2020 H&P Addendum completed by physician on day of procedure. (MUST COMPLETE FOR ALL OUTPATIENTS). 9:37:43 Pre-procedure instructions explained to patient. 9:37:43 Pre-op teaching completed and patient verbalized understanding. 9:37:44 Family in waiting room. 9:37:46 Patient NPO since Midnight. 9:37:50 Is the patient allergic to Iodine/contrast media? No. 9:41:20 Is patient on blood thinner?No 9:41:26 Patient diabetic? Yes. 9:41:27 If diabetic: On Metformin? No 9:41:30 - 9:41:31 ----Pre-sedation anethsthesia assessment.---- 9:41:34 Previous problem with sedation/anesthesia? No ? 9:41:36 Snore? Yes 9:41:37 Sleep apnea? No 9:41:38 Deviated septum? No 9:41:40 Opens mouth fully? Yes 9:41:43 Sticks out tongue? Yes 9:41:47 Airway obstruction? No ? 9:41:49 Dentures? No ? 9:43:28 Pre procedure: left dorsailis pedis pulse Doppler 9:43:33 Pre procedure: right dorsailis pedis pulse Doppler 9:43:37 Pre procedure: right posterior tibial pulse Doppler 9:43:41 Pre procedure: left posterior tibial pulse Doppler 9:52:31 IV patent on arrival in left forearm with 0.9% NaCl at KVO. 9:55:47 Heparin Flush Bag (1000units/500ml NS) 3 bags added to field was administered by Fei Jacobo MD; used for procedure; Verbal order read back and verified. 9:55:56 Vital chart was started 9:55:57 Baseline sample Acquired. 9:56:04 Lidocaine 1% 20ml vial added to field was administered by Fei chandra MD; used for procedure; Verbal order read back and verified. 9:56:07 2) 60-89 Mildly reduced kidney function, and other findings (as for stage 1) point to kidney disease. 9:56:30 Maximum allowable contrast dose (3.7 X eGFR X 0.75)224.77 ml. 10:06:35 Physician arrived 10:06:36 --------ALL STOP TIME OUT------ 10:06:37 Final Timeout: patient, procedure, and site verified with staff and physician. All members of the team are in agreement. 10:06:38 Right groin site verified by team. 10:06:43 Fire Safety Assessment: A--An alcohol-based skin anteseptic being used preoperatively., C--Open oxygen or nitrous oxide is being used. 10:06:49 Sedation plan: IV Moderate Sedation Medication:Versed, Fentanyl 10:07:15 SHEATH 5FR Bristol (DCN717) opened to sterile field. 10:07:15 BENTSON 145cm wire (W76047) opened to sterile field. 10:07:16 TUBING Contrast Injection High Pressure (FPN178E) opened to sterile field. 10:09:58 Versed 1 mg I.V. was administered by Salma Nagy RN; for sedation; Verbal order read back and verified. 10:10:13 Procedure started. 10:10:14 Fentanyl 50 mcg I.V. was administered by Salma Nagy RN; for sedation; Verbal order read back and verified. 10:10:17 Local anesthetic to right femoral artery with Lidocaine 1% by Fei Jacobo MD.INITIAL ACCESS ONLY 10:14:15 SALVADOR 260 wire (N88349) opened to sterile field. 10:14:18 A REPUCOM ULTRA BOLUS FLUSH 5Fr 90CM catheter ([id number]) was advanced over the wire and used for . 10:15:15 Heparin Bolus 6000 units I.V. was administered by Salma Nagy RN; used for procedure; Verbal order read back and verified. 10:15:31 A REPUCOM Impress Bean 5FR. 100CM catheter ([id number]) was advanced over the wire and used for Aortic Root Angiography. 10:25:39 ROADRUNNER .035 260 glide wire (S72479) opened to sterile field. 10:29:51 A [employer] SOS OMNI 2 NON B 5FR 65CM catheter ([id number]) was advanced over the wire and used for . 10:31:57 A [employer] HN5 5F/100CM catheter (J48409) was advanced over the wire and used for . 10:37:23 A DIAGNOSTIC JB3 4Fr catheter (717747) was advanced over the wire and used for . 10:40:37 Versed 0.5 mg I.V. was administered by Salma Nagy RN; for sedation; Verbal order read back and verified. 10:40:55 Fentanyl 25 mcg I.V. was administered by Salma Nagy RN; for sedation; Verbal order read back and verified. 10:41:09 GLIDE WIRE ANGLE 260cm (IE1097) opened to sterile field. 10:44:51 PERCLOSE Proglide 6FR ( 05168407) opened to sterile field. 10:48:12 Fentanyl 25 mcg I.V. was administered by Salma Nagy RN; for sedation; Verbal order read back and verified. 10:48:38 Versed 0.5 mg I.V. was administered by Salma Nagy RN; for sedation; Verbal order read back and verified. 10:49:29 Procedure ended.(Physican Out) 10:50:13 Fluoroscopy time 13.20 minutes. 10:51:17 Fluoroscopy dose: 270 mGy 10:51:17 Flurop Dose total: 270 10:51:22 Contrast amount:Isovue 300 40ml. 10:51:25 Sharps counted by scrub and verified by R.N. 10:51:27 Insertion/operative site no bleeding no hematoma. 10:51:30 Post-op/insertion site Right Femoral artery dressed using a 4 x 4 and Tegaderm. 10:51:33 Post right femoral artery:stable 10:51:41 Post procedure instruction explained to patient.Patient verbalizes understanding. 10:51:43 Procedure and supply charges have been captured, reviewed, submitted an d are correct. 10:54:24 Report given to Outpatients. 10:54:28 Patient transfered to Outpatients with Stretcher. 10:54:51 Vital chart was stopped Device Usage Item Name Manufacture Quantity Catalog Number Hospital Part Current M inimal Lot# / Charge Number Stock Stock Serial# Code ACIST Syringe Acist Medical 1 56895 285862 340591 737663 2 0 (21376) Systems Inc ACIST Hand Acist Medical 1 89629 487604 137963 245431 5 Control Systems Inc (20126) ACIST Manifold Acist Medical 1 77602 831345 431136 110130 5 (40202) Systems Inc Bag Decanter Microtek 1 2002S 679416 20684 245051 5 (2001S) Medical Inc. Sterile Cardinal 1 [id number] 482418 410470 5 Angiographic Health Pack Tegaderm 4 x 4 3M 1 1626W 956349 596506 889002 5 (1626W) SHEATH 5FR Terumo 1 IBE957 226818 658734 421401 5 Bristol (TEO400) BENTSON 145cm Cook Medical 1 J68719 813959 733317 5 wire (H06166) TUBING [facility] Medical 1 [id number] 856778 064552 475272 5 Contrast Injection High Pressure (VKE325O) SALVADOR 260 wire Cook Medical 1 D92447 895659 088914 983248 5 [id number] (J15358) Merit ULTRA [facility] Medical 1 [id number] 691827 112538 5 BOLUS FLUSH 5Fr 90CM catheter ([id number]) Merit Impress [facility] Medical 1 [id number] 739670 436468 5 Bean 5FR. 100CM catheter (193584JAM) ROADRUNNER [facility] 1 Q00629 348044 006312 993328 5 [id number] .035 260 glide wire (Q72918) Angiodynamics Angiodynamics 1 04794322 275416 43163 597903 5 SOS OMNI 2 NON B 5FR 65CM catheter (60959257) Cook HN5 Cook Medical 1 Z69505 227295 638689 2 84543181 5F/100CM catheter (W37522) DIAGNOSTIC JB3 Cardinal 1 532-438 035482 165164 121571 5 4Fr catheter Health (312177) GLIDE WIRE Terumo 1 BY7057 334014 861741 139135 5 ANGLE 260cm (BA6888) PERCLOSE Rollins 1 47306-178 841152 792712 783684 5 3091292 Proglide 6FR ( Vascular [id number]) Signature Audit [place] Stage Time Signature Unsigned Intra-Procedure 07/20/2020 Danielito 10:54:46 AM Sofia RT (R) (CV) [facility] [address] [place] [address]
[2020-07-20 07:25] LABS: CALC OSMOLALITY 282 mosm/kg (275-300); CALCIUM 9.4 mg/dL (8.5-10.1); CARBON DIOXIDE 24.4 mmol/L (21.0-32.0); CHLORIDE - SERUM 101 mmol/L (98-107); GLUCOSE 277 mg/dL (74-106); POTASSIUM - SERUM 4.1 mmol/L (3.5-5.1); SODIUM 135 mmol/L (136-145); UREA NITROGEN 22 mg/dL (7-18); eGFR NON AFRICAN AMERICAN 81 mL/min (90-120)
[2020-07-20 07:26] LABS: APTT 26.7 SECONDS (22.8-39.4); INR 1.11 (0.85-1.17); PROTIME 13.2 SECONDS (11.6-15.0)
[2020-07-20] MEDS ORDERED: ROPINIROLE HCL1 MG PO (08:11)
[2020-07-20] MEDS ORDERED: ZOLOFT25 MG PO (08:12)
[2020-07-20] MEDS ORDERED: TRAZODONE HCL50 MG PO (08:12)
[2020-07-20] MEDS ORDERED: LEVETIRACETAM PO (08:14)
[2020-07-20] MEDS ORDERED: ZONEGRAN100 MG (08:16)
[2020-07-20] MEDS ORDERED: LIPITOR80 MG PO (08:17)
[2020-07-20] MEDS ORDERED: NOVOLOG100 UNIT/1 SC (08:19)
[2020-07-20 08:20] LABS: BASOPHILS 0.2 % (0-2); EOSINOPHILS 0.8 % (0-7); HEMATOCRIT 41.8 % (42.0-54.0); HEMOGLOBIN 14.4 g/dL (13.5-17.5); IMMATURE GRANULOCYTES 0.6 % (0-5); LYMPHOCYTE ABS# 1.96 10x3/uL (1.32-3.57); LYMPHOCYTES 15.6 % (15-50); MCH 29.8 pg (26.0-34.0); MCHC 34.4 g/dL (31.0-37.0); MCV 86.5 fL (80.0-100.0); MEAN PLATELET VOLUME 9.8 fL (7.4-10.4); MONOCYTES 7.5 % (2-11); NEUTROPHIL ABS# 9.49 10x3/uL (1.78-5.38); NEUTROPHILS 75.3 % (40-80); RBC 4.83 10x6/uL (4.20-6.10); RDW 12.7 % (11.5-14.5); WBC 12.6 10x3/uL (4.8-10.8)
[2020-07-20] MEDS ORDERED: BASAGLAR K100 UNIT/1 SC (08:20)
[2020-07-20 08:22] LABS: PLATELET COUNT 298 10x3/uL (130-400)
[2020-07-20 08:43] VITALS: BP 115/77; Ht 200.7 cm; Wt 121.8 kg
--- NOTE | 2020-07-20 08:56 | NUR ---
DR VIZCAINO NOTIFIED AND REVIEWED PT'S BEHAVIOR AND ASSESSMENT. PT IS LOW RISK. RESOURCES GIVEN AND HE VERBALIZES UNDERSTANDING.
--- NOTE | 2020-07-20 12:37 | NUR ---
Nutrition education: Nurse asked RD to visit with pt re: consistent CHO diet Pt instructed at bedside about consistent CHO diet Pt reports he is taking his medication as prescribed. Pt also states he is weighing and recording all food Pt would like outpatient diabetic diet education after discharge RDN provided pt with printed diet handouts. Thank you for consult.
--- NOTE | 2020-07-20 13:52 | NUR ---
PT DC INSTRUCTIONS REVIEWED AT THIS TIME, PT VERBALIZES UNDERSTANDING. PT IV REMOVED AT THIS TIME, INTACT, NO REDNESS OR SWELLING NOTED AT SITE AT THIS TIME. ARTERIOGRAM SITE IS CDI AT THIS TIME, NO BLEEDING OR HEMATOMA NOTED.
--- NOTE | 2020-07-20 13:55 | NUR ---
PATIENT AMBULATES TO BATHROOM AND VOIDS LARGE AMOUNT IN TOILET. LEFT WRIST PIV DC'D WITH TIP INTACT. PATIENT DRESSES IN PERSONAL CLOTHING. DISCHARGE INSTRUCTIONS REVIEWED WITH PATIENT, DISCHARGED HOME VIA WHEELCHAIR TO PRIVATE VEHICLE WITH DAUGHTER AT 1400
== END 2020-07-20 14:00 | disposition home or self-care (01) ==
LOC: D.SP 06:54 → EDSTATUS 09:30 → D.RAD 09:30 → D.SP 14:00 → D.RAD 07-22 08:30
PROVIDERS: ATTEND Radiology Diagnostic Radiology
DX: I63.9 Cerebral infarction, unspecified (principal); I65.02 Occlusion and stenosis of left vertebral artery

== ENCOUNTER → 2020-11-06 10:15 | Outpatient (CLI) | payer MEDICAID ==
[2020-07-20 08:43] VITALS: BMI 30.2
[~2020-11-06 10:15] MED LIST changes: +BASAGLAR K100 UNIT/1 SC; +LEVETIRACETAM PO; +LIPITOR80 MG PO; +NOVOLOG100 UNIT/1 SC; +ROPINIROLE HCL1 MG PO; +TRAZODONE HCL50 MG PO; +ZOLOFT25 MG PO; +ZONEGRAN100 MG
[2020-11-06 11:13] LABS: EOSINOPHILS 1.5 % (0-7); LYMPHOCYTES 31.3 % (15-50); MCH 29.4 pg (26.0-34.0); MCHC 34.1 g/dL (31.0-37.0); MCV 86.3 fL (80.0-100.0); MEAN PLATELET VOLUME 8.3 fL (7.4-10.4); MONOCYTES 6.6 % (2-11); NEUTROPHILS 59.6 % (40-80); PLATELET COUNT 304 10x3/uL (130-400); RDW 13.3 % (11.5-14.5); WBC 8.9 10x3/uL (4.8-10.8)
[2020-11-06 11:21] LABS: ALBUMIN 3.9 g/dL (3.4-5.0); ALKALINE PHOSPHATASE 123 U/L (30-120); ALT (SGPT) 26 U/L (10-68); BILIRUBIN - TOTAL 0.33 mg/dL (0.2-1.3); CALC OSMOLALITY 288 mosm/kg (275-300); CHLORIDE - SERUM 104 mmol/L (98-107); POTASSIUM - SERUM 4.1 mmol/L (3.5-5.1); PROTEIN - SERUM 7.9 g/dL (6.4-8.2); SODIUM 141 mmol/L (136-145); UREA NITROGEN 24 mg/dL (7-18); eGFR NON AFRICAN AMERICAN 81 mL/min (90-120)
[2020-11-06 11:23] LABS: GLUCOSE 176 mg/dL (74-106)
== END | disposition home or self-care (01) ==
LOC: D.LAB 10:15
PROVIDERS: ATTEND Psychiatry & Neurology Neurology
DX: R56.9 Unspecified convulsions (principal)